=== PATIENT | male | born 1960 | race Caucasian/White ===

== ENCOUNTER → 2017-04-08 | Day surgery (SDC) | payer OTHER ==
[2017-03-31 08:20] VITALS: Ht 191.8 cm; Wt 97.7 kg
[~2017-04-08] VITALS: Ht 191.8 cm; Wt 97.7 kg
[~2017-04-08] MED LIST: ATROPINE SULFATE 0.1 MG/ML 5ML SYR IV PRN; EpHEDrine SULFATE INJ 50 MG/ML AMP IV PRN; FEXO1TAB49 PO; LIDOCAINE HCL 2% 2 ML VIAL (20MG/ML) ONE; OMEG10007 PO; PROPOFOL IV EMULSION 10 MG/ML 20 ML VIAL IV ONE
--- NOTE | 2017-04-08 14:55 | Endo History and Physical ---
History & Physical Date of Service: April 08, 2017. Chief Complaint: history of polyps Referring Physician: Dr. Orquidea Wong History of Present Illness 56 yo CM who presents for colonoscopy secondary to history of colon polyps. Past Surgical History Hx Cardiac Surgery: No Hx Internal Defibrillator: No Hx Pacemaker: No Hx Abdominal Surgery: No Hx of Implantable Prosthesis: No Hx Post-Op Nausea and Vomiting: No Hx Cancer Surgery: No Hx Thoracic Surgery: No Hx Orthopedic: No Hx Urinary Tract Surgery: No Family History None Social History Smoking Status: Current Every Day Smoker Hx Substance Use: No Hx Alcohol Use: Yes (OCCASIONALLY) Allergies Coded Allergies: No Known Allergies (Verified , 03/31/17) Uncoded Allergies: NKDA (Allergy, Mild, 10/18/07) Current Medications Reported Home Medications Medications Dose Route/Sig Max Daily Dose Days Date Category [place]-3 (Fish Oil) 1 Ea Cap 1 Cap PO QAM 03/31/17 Reported Rozina Allergy (Fexofenadine Hcl) 180 Mg Tab 1 Tab PO QAM 14 03/31/17 Reported Vital Signs Weight (Kilograms): 97.73 Height (Feet): 6 Height (Inches): 3.5 Date Time Temp Pulse Resp B/P Pulse Ox O2 Delivery O2 Flow Rate FiO2 04/08/17 14:28 36.5 69 20 131/77 96 Room Air Physical Exam General Appearance: WD/WN, no apparent distress Respiratory/Chest: Auscultation: breath sounds normal Cardiovascular: Heart Auscultation: RRR Abdomen: Bowel Sounds: normal Inspection & Palpation: soft, non-distended, no tenderness, guarding & rebound Assessment and Plan Assessment: 56 yo CM who presents for colonoscopy secondary to history of colon polyps. Plan: Proceed with colonoscopy.
--- NOTE | 2017-04-08 15:36 | GI REPORT ---
Procedure Date: 04/08/2017 2:53 PM Procedure: Colonoscopy Indications: High risk colon cancer surveillance: Personal history of colonic polyps Medicines: Monitored Anesthesia Care Complications: No immediate complications. Estimated Blood Loss: Estimated blood loss: none. Procedure: Pre-Anesthesia Assessment: - Prior to the procedure, a History and Physical was performed, and patient medications and allergies were reviewed. The patient's tolerance of previous anesthesia was also reviewed. The risks and benefits of the procedure and the sedation options and risks were discussed with the patient. All questions were answered, and informed consent was obtained. Prior Anticoagulants: The patient has taken no previous anticoagulant or antiplatelet agents. ASA Grade Assessment: II - A patient with mild systemic disease. After reviewing the risks and benefits, the patient was deemed in satisfactory condition to undergo the procedure. After I obtained informed consent, the scope was passed under direct vision. Throughout the procedure, the patient's blood pressure, pulse, and oxygen saturations were monitored continuously. The scope was introduced through the anus and advanced to the terminal ileum. The colonoscopy was performed without difficulty. The patient tolerated the procedure well. The quality of the bowel preparation was good. The terminal ileum, ileocecal valve, appendiceal orifice, and rectum were photographed. Findings: Three sessile polyps were found in the sigmoid colon and in the ascending colon. The polyps were 3 to 6 mm in size. These polyps were removed with a hot snare. Resection and retrieval were complete. Multiple small-mouthed diverticula were found in the sigmoid colon. Non-bleeding internal hemorrhoids were found during retroflexion. The hemorrhoids were small. Impression: - Three 3 to 6 mm polyps in the sigmoid colon and in the ascending colon, removed with a hot snare. Resected and retrieved. - Diverticulosis in the sigmoid colon. - Non-bleeding internal hemorrhoids. Recommendation: - Resume previous diet. - Continue present medications. - Repeat colonoscopy for surveillance based on pathology results. - Return to primary care physician as previously scheduled. Edin Ocampo DO 04/08/2017 3:34:51 PM This report has been signed electronically. Note Initiated On: 04/08/2017 2:53 PM I attest to the content of the Intraoperative Record and orders documented therein, exceptions below
--- NOTE | 2017-04-08 15:36 | Discharge Instructions ---
Endoscopy Patient Instructions Date / Procedure(s) Performed April 08, 2017. Colonoscopy Allergy Information Coded Allergies: No Known Allergies (Verified , 03/31/17) Uncoded Allergies: NKDA (Allergy, Mild, 10/18/07) Discharge Date / Findings April 08, 2017. Colon polyps Diverticulosis Internal hemorrhoids Medication Instructions OK to resume all medications today as prescribed Reported Home Medications Medications Dose Route/Sig Max Daily Dose Days Date Category [place]-3 (Fish Oil) 1 Ea Cap 1 Cap PO QAM 03/31/17 Reported Rozina Allergy (Fexofenadine Hcl) 180 Mg Tab 1 Tab PO QAM 14 03/31/17 Reported Provider Instructions Activity Restrictions - No exercising or heavy lifting for 24 hours. - Do not drink alcohol the day of the procedure. - Do not drive a car or operate machinery until the day after the procedure. - Do not make any important decisions or sign important papers in 24 hours after the procedure. Following Day: - Return to full activity which may include returning to work/school. Diet Start your diet with liquids and light foods (jello, soup, juice, toast). Then eat your usual diet if not nauseated. Treatment For Common After Affects For mild abdominal pain, bloating, or excessive gas: - Rest - Eat lightly - Lie on right side Follow-Up Information Follow-up with Dr. Orquidea Wong as scheduled Anesthesia Information What You Should Know You have had a procedure that required some medicine to reduce anxiety and discomfort. This treatment is called moderate sedation. After receiving the treatment, you may be sleepy, but you will be able to breathe on your own. The effects of the treatment may last for several hours. Follow these instructions along with Activity/Diet recommendations noted above: * Do NOT do anything where dizziness or clumsiness would be dangerous. * Rest quietly at home today, then you can be up and about tomorrow. * Have a responsible person stay with you the rest of today. * You may have had an I.V. today. If so, you may take the dressing off later today. Recommendations Call your doctor if: * Trouble breathing * Continuous vomiting for more than 24 hours * Temperature above 101 degrees * Severe abdominal pain or bloating * Pain not relieved by pain medicine ordered * There is increased drainage or redness from any incision * A large amount of rectal bleeding greater than 2-3 tablespoons. (If you had a polyp/s removed or have hemorrhoids, a small amount of blood - from the rectum is to be expected.) * You have any unanswered questions or concerns. IN THE EVENT OF A SERIOUS EMERGENCY, GO TO THE NEAREST EMERGENCY ROOM Your discharge instructions were prepared by provider Edin Ocampo. Patient Instructions Signature Page Gus Holder Patient (or Guardian) Signature/Date: I have read and understand the instructions given to me by my caregivers. Caregiver/RN/Doctor Signature/Date: The above-named patient and/or guardian has received patient instructions on this date. + Original Patient Signature Page (only) stays with chart. Please make copy for patient.
[2017-04-08 16:06] VITALS: BP 89/77; PULSE 63; O2SAT 99
--- NOTE | 2017-04-08 16:43 | Anesthesiology Progress Note ---
Anesthesia Post Op Note Date & Time April 08, 2017 at 16:43 Vital Signs Pain Intensity: 0 Vital Signs Past 12 Hours Date Time Temp Pulse Resp B/P Pulse Ox O2 Delivery O2 Flow Rate FiO2 04/08/17 16:06 63 18 89/77 99 Room Air 04/08/17 15:51 64 18 116/77 97 Room Air 04/08/17 15:36 78 18 116/81 97 Room Air 04/08/17 14:28 36.5 69 20 131/77 96 Room Air Notes Mental Status: alert / awake / arousable, participated in evaluation Pt Amnestic to Procedure: Yes Nausea / Vomiting: adequately controlled Pain: adequately controlled Airway Patency, RR, SpO2: stable & adequate BP & HR: stable & adequate Hydration State: stable & adequate Anesthetic Complications: no major complications apparent
== END | disposition home or self-care (01) ==
LOC: C.GI 14:02
PROVIDERS: ATTEND Internal Medicine
DX: Z12.11 Encounter for screening for malignant neoplasm of colon (principal); D12.2 Benign neoplasm of ascending colon; D12.5 Benign neoplasm of sigmoid colon; K57.30 Diverticulosis of large intestine without perforation or abscess without bleeding; K64.8 Other hemorrhoids; Z86.010 Personal history of colon polyps; F17.210 Nicotine dependence, cigarettes, uncomplicated

== ENCOUNTER 2023-12-01 10:41 | Observation (INO) ==
--- NOTE | 2023-12-01 11:15 | XRay Report ---
SINGLE VIEW CHEST CLINICAL HISTORY: Atypical chest pain. Syncope. FINDINGS: A PA chest radiograph is compared to study dated 10/18/2007. The cardiomediastinal silhouett e is unremarkable. The lungs and pleural spaces are clear. No pneumothorax is seen. There is a chroni c/healed left-sided rib fracture. IMPRESSION: No active disease in the chest. ACT 112: Negative or not required by law. Electronically signed by: Ze Mtz M.D. 12/01/2023 11:13 AM
[2023-12-01] MEDS ORDERED: SODIUM CHLORIDE 0.9% 1,000 ML IV ONE (11:24)
--- NOTE | 2023-12-01 11:28 | Emergency Department Note ---
Impression & Plan Sinus arrest Admit ED Provider Note HPI: History obtained from patient. The patient is a 62-year-old male who presents emergency department chief complaint of a syncopal event. Patient states that over the past several days he had 2 episodes of lightheadedness that resolved spontaneously. Patient states this morning he was drinking a cup of coffee and playing a game on his phone when he felt acutely lightheaded and then remembers waking up again in the recliner chair with the cup of coffee spilled on his lap. Patient is unsure for how long this lasted but guesses a short period of time. Patient denies any chest pain or shortness of breath, states he did have one similar episode about 30 years ago and was told it was secondary to a blood pressure issue. On arrival here to the ED the patient is hemodynamically stable, he does not have any focal deficits, patient denies any chest pain or shortness of breath but states he still feels some mild lightheadedness. ROS: - Per HPI Differential Diagnosis: Vasovagal event, seizure, arrhythmia to include SVT, atrial fibrillation with RVR, ventricular tachycardia, high degree heart block, sinus arrest, amongst other potential pathologies. *Outpatient medications and allergy history reviewed. PE: General: Alert HEENT: Normocephalic, trachea midline Eyes: Extraocular eye movement is intact, no scleral erythema Pulmonary: Clear to auscultation bilaterally, no wheezing Cardio: Regular rate and rhythm GI: Abdomen is soft to palpation : No suprapubic tenderness MSK: No evidence of trauma or malformation of the extremities, no edema Skin: No evidence of rash Neuro: Alert, no focal deficits Psychiatric: Cooperative INDEPENDENT INTERPRETATIONS: clinical research monitor: (As interpreted by myself): - An order was placed for continuous cardiac monitoring - Patient was noted to be in sinus rhythm with a rate of 72 EKG: (As interpreted by myself): Rate: 87 Rhythm: Normal sinus rhythm Intervals: Within normal limits ST changes: No ST elevation Time: 1122 Chest x-ray: (As interpreted by myself): No acute disease Interventions provided in ED: -IV fluid bolus Medical Decision Making: Shortly after the patient arrived IV was established and lab work obtained, patient was placed on playground monitor. Lab work shows no leukocytosis, hemoglobin is normal, platelet count is normal, CMP does not show any critical findings, troponin is negative x 1. TSH is within normal limits. Magnesium is within normal limits. CT imaging of the head does not show any evidence of any acute intracranial process. Chest x-ray per my interpretation does not show any evidence of acute disease. While here in the ED awaiting the results of workup, patient had a another syncopal event that correlated with a sinus arrest on the monitor lasting approximately 5 seconds. I did discuss these findings with on-call cardiology, Dr. Dockery, who recommended admission and initiation of dopamine should the patient have any recurrent or prolonged bradycardia. As the patient is currently back in sinus rhythm with only a transient event and his heart rate is within normal limits will defer any vasopressors at this time. I discussed the patient's presentation with the on-call hospitalist, Dr. Rajput, the patient was placed for admission in stable condition. Consultants/Discussions held with other healthcare providers: -Cardiology, Dr. Dockery -Hospitalist, Dr. Rajput Disposition discussion held by myself with: -Patient and at bedside Diagnosis: 1. Syncope, acute 2. Sinus arrest on playground monitor, acute, transient Disposition: Admission Taj Soto DO Emergency Medicine Past Med/Surg History Medical History Urinary hesitancy Lumbar spondylosis Lumbar radiculopathy Hip problem STEROID SHOT A FEW WEEKS AGO/LEFT Borderline high cholesterol HX Obstructive sleep apnea did not tolerate CPAP Colon polyp HX/BENIGN Surgical History History of colonoscopy History of tonsillectomy Family History Unknown Hypertension Other Family history of diabetes mellitus in father Denies family history of Ovarian cancer Prostate cancer Myocardial infarction Breast cancer Colorectal cancer Social History Smoking Status: Current every day smoker Tobacco Type: Cigarettes Age Started Using Tobacco: 36; packs per day: 1; Cigarettes Per Day: 1PPD/ADVISED NPO; Do You Dip or Chew Tobacco: No; Hx Alcohol Use: Yes Alcohol type: beer Alcohol Intake Frequency: 2-3 x/Week Preferred Language: Georgian Communication Ability: Effective Home Health Attendant Required: No Beliefs That Will Affect Care: None marital status: Single Current Living Situation: Spouse current occupational status: employed Feels Safe at Home: Yes Assistive Devices: Glasses Allergies Allergies Allergy/AdvReac Type Severity Reaction Status Date / Time No Known Allergies Allergy Unknown Verified 10/19/22 11:04 Home Meds Home Medications Medication Instructions Recorded Confirmed loratadine 10 mg tablet (Claritin) 10 mg PO DAILY PRN allergies 12/01/23 12/01/23 Results & Data (ED) Vital Signs Vital Signs - 24 hr 12/01/23 10:51 12/01/23 11:34 12/01/23 11:36 Temperature 36.5 C Temperature Source Temporal Artery Scan Pulse Rate 94 H 77 Pulse Rate [Apical] 77 Pulse Rate from SpO2 Sensor Pulse Rhythm Respiratory Rate 16 20 17 Respiratory Effort / Characteristics Non-Labored Spontaneous Respiratory Depth Normal Blood Pressure 120/77 138/89 Blood Pressure [Left Arm] 144/92 H Blood Pressure Mean 91 105 Blood Pressure Mean [Left Arm] 109 Pulse Oximetry 96 96 95 Oxygen Delivery Method Room Air Room Air Sepsis Recent Fever Within 48 Hours No Sepsis New/Unexplained Change in Mental Status No Sepsis Action Taken by Nursing No Action Required 12/01/23 11:38 12/01/23 11:52 12/01/23 12:00 Temperature Temperature Source Pulse Rate 85 71 69 Pulse Rate [Apical] Pulse Rate from SpO2 Sensor 67 Pulse Rhythm Regular Respiratory Rate 21 14 Respiratory Effort / Characteristics Respiratory Depth Blood Pressure 131/92 118/80 Blood Pressure [Left Arm] Blood Pressure Mean 103 92 Blood Pressure Mean [Left Arm] Pulse Oximetry 95 96 94 Oxygen Delivery Method Room Air Sepsis Recent Fever Within 48 Hours Sepsis New/Unexplained Change in Mental Status Sepsis Action Taken by Nursing 12/01/23 12:30 12/01/23 12:39 12/01/23 13:00 Temperature Temperature Source Pulse Rate 75 68 71 Pulse Rate [Apical] Pulse Rate from SpO2 Sensor 72 72 Pulse Rhythm Respiratory Rate 17 18 Respiratory Effort / Characteristics Respiratory Depth Blood Pressure 125/78 94/58 L Blood Pressure [Left Arm] Blood Pressure Mean 93 70 Blood Pressure Mean [Left Arm] Pulse Oximetry 97 97 Oxygen Delivery Method Sepsis Recent Fever Within 48 Hours Sepsis New/Unexplained Change in Mental Status Sepsis Action Taken by Nursing 12/01/23 13:10 12/01/23 13:20 Temperature Temperature Source Pulse Rate 63 68 Pulse Rate [Apical] Pulse Rate from SpO2 Sensor 63 67 Pulse Rhythm Respiratory Rate 15 18 Respiratory Effort / Characteristics Respiratory Depth Blood Pressure Blood Pressure [Left Arm] Blood Pressure Mean Blood Pressure Mean [Left Arm] Pulse Oximetry 95 97 Oxygen Delivery Method Sepsis Recent Fever Within 48 Hours Sepsis New/Unexplained Change in Mental Status Sepsis Action Taken by Nursing Laboratory Data 12/01/23 11:23 12/01/23 11:23 Lab Results 12/01/23 Range/Units 11:23 WBC 9.87 (4.8-10.8) K/ul RBC 5.75 (4.70-6.10) M/uL Hgb 16.8 (14.0-18.0) g/dl Hct 49.8 (42.0-52.0) % MCV 86.6 (80.0-100.0) fL MCH 29.2 (25.0-34.0) pg MCHC 33.7 (32.0-36.0) g/dL RDW Std Deviation 42.5 (36.4-46.3) fL RDW Coeff of Jessie 13.4 (11.5-14.5) % Plt Count 204 (130-400) K/uL MPV 12.2 (9.4-12.4) fL Immature Gran % (Auto) 0.9 % Neut % (Auto) 63.9 % Lymph % (Auto) 27.4 % Preston % (Auto) 6.0 % Eos % (Auto) 1.2 % Baso % (Auto) 0.6 % Neut # (Auto) 6.31 (1.40-6.50) K/uL Lymph # (Auto) 2.70 (1.20-3.40) K/uL Preston # (Auto) 0.59 (0.11-0.59) K/uL Eos # (Auto) 0.12 (0.00-0.50) K/uL Baso # (Auto) 0.06 (0.00-0.20) K/uL Immature Gran # (Auto) 0.09 (0.01-0.20) K/uL Polychromasia 1+ PT 10.9 (9.0-12.0) Seconds INR 1.0 (0.9-1.1) APTT 24 (21-31) Seconds PTT Ratio 0.9 Sodium 138 (136-145) mmol/L Potassium 4.3 (3.5-5.1) mmol/L Chloride 104 (98-107) mmol/L Carbon Dioxide 27 (21-32) mmol/L Anion Gap 7 (3-11) BUN 18 (6-23) mg/dl Creatinine 1.01 (0.6-1.4) mg/dl Est Cr Clr Drug Dosing Not Reportable Est GFR ( Amer) 92.6 ml/min Est GFR (Non-Af Amer) 79.9 ml/min BUN/Creatinine Ratio 17.8 (10-20) Glucose 111 H (70-99(Fasting)) mg/dl Calcium 9.1 (8.6-10.3) mg/dl Magnesium 2.3 (1.7-2.4) mg/dl Total Bilirubin 0.4 (0.2-1.0) mg/dl AST 18 (13-39) U/L ALT 17 (7-52) U/L Alkaline Phosphatase 79 (34-104) U/L Troponin I High Sens 3.0 (0-20) pg/ml Total Protein 7.5 (6.0-8.3) gm/dl Albumin 4.5 (3.4-5.0) gm/dl Globulin 3.0 (2.5-4.0) gm/dl Albumin/Globulin Ratio 1.5 (0.9-2) TSH 1.695 (0.300-4.500) uIu/ml Administered Medications Discontinued Medications Sodium Chloride (Nss) 1,000 mls @ 999 mls/hr IV .Q1H1M ONE Stop: 12/01/23 12:24 Last Infusion: 12/01/23 12:36 Dose: Infused Documented By: Admin: 12/01/23 11:35 Dose: 999 mls/hr Documented By: ML Imaging Data Radiologist's Impression: Chest X-Ray 12/01/23 10:55 SINGLE VIEW CHEST CLINICAL HISTORY: Atypical chest pain. Syncope. FINDINGS: A PA chest radiograph is compared to study dated 10/18/2007. The cardiomediastinal silhouette is unremarkable. The lungs and pleural spaces are clear. No pneumothorax is seen. There is a chronic/healed left-sided rib fracture. IMPRESSION: No active disease in the chest. ACT 112: Negative or not required by law. Electronically signed by: Ze Mtz M.D. 12/01/2023 11:[address] 01/17/24 11:25 CT head/brain wo con CLINICAL HISTORY: 62 years-old Male with syncope. Acute syncope TECHNIQUE: Multiple axial CT images of the head were obtained without contrast. A dose lowering technique was utilized adhering to the principles of ALARA. CT DOSE: 703.85 mGy.cm COMPARISON: None. FINDINGS: No acute intracranial hemorrhage, midline shift, intracranial mass, hydrocephalus, territorial ischemia or abnormal extra-axial collection. Mild white matter hypodensities likely represent chronic microvascular ischemic disease. Cerebrovascular calcifications. The calvarium is intact. The paranasal sinuses, mastoid air cells, and middle ear cavities are clear. IMPRESSION: 1. No acute intracranial abnormality. 2. No acute calvarial fracture. ACT 112: Negative or not required by law. The above report was generated using voice recognition software. It may contain grammatical, syntax or spelling errors. Electronically signed by: Willis Rosales M.D. 12/01/2023 12:46 PM Discharge Plan Visit Data Chief Complaint: Syncope Stated Complaint: lightheaded, syncope ED Provider: Taj Soto Discharge Problem: Sinus arrest Forms Stand Alone Forms: [facility] Prescriptions Prescriptions: No Action loratadine [Claritin] 10 mg Tablet 10 mg PO DAILY PRN (Reason: allergies) Referrals Referrals: Orquidea Wong MD [Primary Care Provider] -
[2023-12-01 12:06] LABS: Alanine Aminotransferase 17 U/L (7-52); Albumin Globulin Ratio 1.5 (0.9-2); Albumin Level 4.5 gm/dl (3.4-5.0); Alkaline Phosphatase 79 U/L (34-104); Anion Gap 7 (3-11); Aspartate Aminotransferase 18 U/L (13-39); BUN Creatinine Ratio 17.8 (10-20); Bilirubin,Total 0.4 mg/dl (0.2-1.0); Blood Urea Nitrogen 18 mg/dl (6-23); Calcium 9.1 mg/dl (8.6-10.3); Carbon Dioxide 27 mmol/L (21-32); Chloride 104 mmol/L (98-107); Est GFR (African American) 92.6 ml/min; Est GFR (Non-African American) 79.9 ml/min; Glucose 111 mg/dl (70-99(Fasting)); Potassium 4.3 mmol/L (3.5-5.1); Sodium 138 mmol/L (136-145); Total Protein 7.5 gm/dl (6.0-8.3)
[2023-12-01 12:18] LABS: Basophils # (auto) 0.06 K/uL (0.00-0.20); Basophils % (auto) 0.6 %; Eosinophils # (auto) 0.12 K/uL (0.00-0.50); Eosinophils % (auto) 1.2 %; Hematocrit (blood only) 49.8 % (42.0-52.0); Hemoglobin 16.8 g/dl (14.0-18.0); Immature Granulocytes # (auto) 0.09 K/uL (0.01-0.20); Immature Granulocytes % (auto) 0.9 %; Lymphocytes % (auto) 27.4 %; Magnesium 2.3 mg/dl (1.7-2.4); Mean Corpuscular Hemoglobin 29.2 pg (25.0-34.0); Mean Corpuscular Hgb Conc 33.7 g/dL (32.0-36.0); Mean Corpuscular Volume 86.6 fL (80.0-100.0); Mean Platelet Volume 12.2 fL (9.4-12.4); Monocytes # (auto) 0.59 K/uL (0.11-0.59); Neutrophils # (auto) 6.31 K/uL (1.40-6.50); Neutrophils % (auto) 63.9 %; Partial Thromboplastin Ratio 0.9; Partial Thromboplastin Time 24 Seconds (21-31); Platelet Count 204 K/uL (130-400); Polychromasia 1+; Prothrombin Time 10.9 Seconds (9.0-12.0); RDW Coefficient of Variation 13.4 % (11.5-14.5); RDW Standard Deviation 42.5 fL (36.4-46.3); Red Blood Count 5.75 M/uL (4.70-6.10); White Blood Count 9.87 K/ul (4.8-10.8)
[2023-12-01 12:33] LABS: Thyroid Stimulating Hormone 1.695 uIu/ml (0.300-4.500)
--- NOTE | 2023-12-01 12:47 | CT Scan Report ---
CT head/brain wo con CLINICAL HISTORY: 62 years-old Male with syncope. Acute syncope TECHNIQUE: Multiple axial CT images of the head were obtained without contrast. A dose lowering tech nique was utilized adhering to the principles of ALARA. CT DOSE: 703.85 mGy.cm COMPARISON: None. FINDINGS: No acute intracranial hemorrhage, midline shift, intracranial mass, hydrocephalus, territorial ischem ia or abnormal extra-axial collection. Mild white matter hypodensities likely represent chronic micro vascular ischemic disease. Cerebrovascular calcifications. The calvarium is intact. The paranasal sinuses, mastoid air cells, and middle ear cavities are clear . IMPRESSION: 1. No acute intracranial abnormality. 2. No acute calvarial fracture. ACT 112: Negative or not required by law. The above report was generated using voice recognition software. It may contain grammatical, syntax o r spelling errors. Electronically signed by: Willis Rosales M.D. 12/01/2023 12:46 PM
--- NOTE | 2023-12-01 13:07 | History & Physical Report ---
Date of Service December 01, 2023 Assessment & Plan (1) Sinus pause: Plan: Syncope with sinus pause 5.2s Patient with an episode of syncope while sitting in his recliner chair. 2 prior episodes of sudden lightheadedness and presyncope which subsequently improved. Had an episode while sitting drinking coffee with some lightheadedness and then woke up back in his recliner unaware how much time it passed. Last echo 01/2022 EF 55-60%, no valvular pathology, no regional wall motion abnormalities, stable from prior. - Holter monitor 2021 performed for palpitations with IVCD without significant pauses or AV block, normal KY and QT at varying rates, rare isolated APD's, rare isolated VPD's. No significant arrhythmia noted, dizziness and symptoms or flagged as occurring during normal sinus rhythm and during sinus tachycardia Admitting EKG iRBBB, nsr, KY 162, QTc 466. 5.2 second pause without KY abnormality prior/after noted while on telemetry. - No anginal sx. hs-trop normal. - Echo pending Patient is not on any zoe blocking agents - Lyme testing pending -CT-H naf - Pacer pads to bedside, if recurrent sx --> add dopamine gtt and xfer to ICU. Asymptomatic at bedside, admitted to PCU. - Cardiology consulted. NPO at 0000, anticipate pacer placement 12/02. (2) Lumbar radiculopathy: Plan: Lumbar radiculopathy S/p L2-L3 laminectomy and microdiscectomy due to recurrent disc herniation and stenosis with radiculopathy Follows with [facility] 90% improvement of symptoms postoperatively, feels he is doing well since. (3) Obstructive sleep apnea: Plan: - did have outpt sleep study. Pt did not tolerate CPAP as outpatient, but has not tried a machine in many years - CPAP qHS PRN. Followup as outpt to look at newer resources/nasal pillow/etc for improved tolerance (4) Tobacco abuse: Plan: - Cessation recommended - nicotine patch PRN Plan DVT PPx: SCDs Diet: Clears until midnight then NPO for pacer Dispo: PCU. If frequent sx events requiring dopamine or pacing --> xfer ICU at that time CODE: Full History of Present Illness Primary Care Provider: Orquidea Wong MD Jordan is a 62-year-old male with a past medical history of lumbar radiculopathy s/p L2-L3 laminectomy/microdiscectomy, hyperlipidemia, distant history of presyncope suspected to be related to blood pressure, hemorrhoids, and no prior cardiopulmonary disease who presents for an episode of syncope which occurred while sitting in his chair and which was preceded by 2 recent upper episodes of sudden lightheadedness and presyncope. He has no leukocytosis, BSG was 111, he is not volume contracted, with normal renal function, and a normal potassium on admission. High-sensitivity troponin is normal, TSH is normal, and EKG does not show any acute ischemic change but rhythm reviewed does show a 5.2-second sinus pause. Everardo reports he has been feeling lightheaded and passed out twice today Prior to this has had a 'very kun sensation' where he was very suddenly lightheaded and presyncopal this passed Wednesday. This was the first time he felt dizzi since 30 years ago when he had a similar episode but was told it was from low blood pressure at that time. Intermittent episodes since Wednesday with some but less presycnope, ~5 episodes total. Today was the first time he lost conciousnes/syncopized. Was drinking coffee playing games on his phone, felt the lightheadedness coming just for a few seconds then woke up with coffee all over him. Not more than 10 seconds of warning. 2nd episode happened while in the ER, again had seconds notice. Was only out for ~10 seconds at the most per his who was with. No weakness, no confusion after. No shaking. no bowel/bladder incontinence. Pt does endorse a history of sleep apnea, was tested for it 20 years ago but does not use a CPAP No recent fevers, chills. Has had some sweats around his episodes when waking up. Denies chest pain, denies chest pressure. no shortness of breath. Is able to walk, go up stairs, and shovel snow yesterday with no pain, no dyspnea, no chest pressure although notes he doesn't do 'a lot since back surgery last year.' No history of lung or kidney disease No leg swelling. No orthopnea No rashes. No tick bites. No leg swelling. Hx of a holter monitor FHx: Father with bipass in 50-60s, also had 'mild diabetes not on insulin.' Medical History: Reviewed Medications: Reviewed. No prescription medications. Takes allergy pills PRN took 1x generic OTC med but doesn't remember the name Surgical History: Reviewed Family history: Reviewed Allergies: Reviewed. NKDA Social History: Social EtOH use ~2-3 days per week, 2-3 in a sitting generally. No history shakes or withdrawal. Very rare reactional marijuana. Cigarette use 1ppd x20 years. Code Status: Full Code Allergies Allergy/AdvReac Type Severity Reaction Status Date / Time No Known Allergies Allergy Unknown Verified 10/19/22 11:04 Home Medications Medication Instructions Recorded Confirmed Type loratadine 10 mg tablet (Claritin) 10 mg PO DAILY PRN allergies 12/01/23 12/01/23 History Past Med/Surg History Medical History Urinary hesitancy Lumbar spondylosis Lumbar radiculopathy Hip problem STEROID SHOT A FEW WEEKS AGO/LEFT Borderline high cholesterol HX Obstructive sleep apnea did not tolerate CPAP Colon polyp HX/BENIGN Surgical History History of colonoscopy History of tonsillectomy Family History Unknown Hypertension Other Family history of diabetes mellitus in father Denies family history of Ovarian cancer Prostate cancer Myocardial infarction Breast cancer Colorectal cancer Social History Smoking Status: Current every day smoker Tobacco Type: Cigarettes Age Started Using Tobacco: 36; packs per day: 1; Cigarettes Per Day: 20; Second Hand Exposure: No; Do You Dip or Chew Tobacco: No; Tobacco Cessation Education Requested by Patient: No Hx Alcohol Use: Yes Alcohol type: beer Alcohol Intake Frequency: 2-3 x/Week Hx Substance Use: Yes Last Used Substance Other:: high school Preferred Language: Tongan Communication Ability: Effective Used Car Renovator Required: No Beliefs That Will Affect Care: None marital status: Single Current Living Situation: Other Current Living Situation Comment: girlfriend current occupational status: employed Other Information That Helps Us Care for You: No Feels Safe at Home: Yes Safety Concerns: Feels Safe At This Time Assistive Devices: None Review of Systems Review of Systems: All systems reviewed & are unremarkable except as noted in HPI & below Physical Exam Physical Exam: General: A&Ox3. NAD. Cooperative. HEENT: Atraumatic, normocephalic. PERLAA. EoM intact. Pulm: CTAB A&P. -wheezes, -rales, -rhonchi. Symmetrical chest rise. No increased work of breathing. No respiratory distress. Cardiac: RRR, -mrg. Radial pulses intact and symmetrical. No JVD Abdominal: Nontender, nondistended, soft. BS present. Ext: Warm, dry. No edema. Results & Data Results & Data Vital Signs (Past 12 Hours) Vital Signs Temp Pulse Pulse Resp BP BP Pulse Ox 12/01/23 12:39 68 12/01/23 12:30 75 17 125/78 97 12/01/23 12:00 69 14 118/80 94 12/01/23 11:52 71 96 12/01/23 11:38 85 21 131/92 95 12/01/23 11:36 77 17 138/89 95 12/01/23 11:34 77 20 144/92 H 96 12/01/23 10:51 36.5 C 94 H 16 120/77 96 O2 Del Method 12/01/23 12:39 12/01/23 12:30 12/01/23 12:00 12/01/23 11:52 Room Air 12/01/23 11:38 12/01/23 11:36 12/01/23 11:34 Room Air 12/01/23 10:51 Room Air PG Care Time/CCT Total # of Minutes Spent Total Time Spent with Patient: Total time spent is greater than 50% in coordination of care (as documented) at patient's floor/unit and/or counseling patient: Coding Level of Care Code 30593 INT INP/OBS CARE 3/75MIN Diagnoses Sinus pause I45.5 Lumbar radiculopathy M54.16 Obstructive sleep apnea G47.33 Tobacco abuse Z72.0
--- NOTE | 2023-12-01 13:35 | Cardiology Consultation ---
Date of Consultation December 01, 2023 Assessment & Plan (1) Sinus arrest: 2. Obstructive sleep apnea 3. RBBB 4. Lumbar radiculopathy postlaminectomy 5. Tobacco abuse Witnessed syncope in the setting of sinus node dysfunction on telemetry. No signs/symptoms of coronary ischemia. No offending medications. Thyroid, electrolytes unremarkable. Lyme pending. Currently back in sinus rhythm in 60s and 70s and hemodynamically stable. With no clear precipitant patient will likely need permanent pacemaker. Will discuss with EP but tentatively plan on procedure tomorrow with Dr. Pringle. In the interim: Continue monitoring on telemetry Trend troponin, Lyme serologies Repeat echo Pacing pads in place. If recurrent symptomatic pauses start dopamine infusion. No need for temporary pacemaker at this time. Please keep n.p.o. past midnight Patient seen with Dr. Rajput. History of Present Illness History of Present Illness Mr. Holder is a very pleasant 62-year-old male CORY, lumbar radiculopathy post laminectomy 07/2023 seen today in the ED due to syncope with sinus pauses. Patient reports new presyncopal spells over the last 3 to 4 days, approximately 5 episodes. Today had first episode where he passed out. Witnessed by , loss of consciousness for approximately 10 seconds. Syncopal spell preceded by brief lightheadedness/feeling he was "watching himself." No associated chest pain or palpitations. No preceding nausea, diaphoresis. In the ED had a second episode of syncope while on monitor, correlated with sinus pauses, longest >5 seconds. Since has been in sinus rhythm, primarily in the 70s, hemodynamically stable with no recurrent presyncopal symptoms. ECG today shows sinus rhythm, RBBB, left axis deviation, no ST abnormalities. HS TropI normal. Head CT negative. Activity at baseline limited by back issues but recently no new exertional shortness of breath, chest pain or change in exercise tolerance. No heart failure symptoms. No tick bites, rashes, fevers or chills. No new medications. Reports 1 single episode maybe 30 years ago for which told due to low blood pressures. Also previously evaluated for palpitations with primary care in 2021. Holter monitor with rare PACs/PVCs. Echo with preserved LV function.. Recent cardiac testing: Echo 01/2022: EF 55%,, no valve pathology Holter 01/2022: Rare PACs, PVCs.. No arrhythmia correlate with symptoms Allergies Allergy/AdvReac Type Severity Reaction Status Date / Time No Known Allergies Allergy Unknown Verified 10/19/22 11:04 Home Medications Medication Instructions Recorded Confirmed Type loratadine 10 mg tablet (Claritin) 10 mg PO DAILY PRN allergies 12/01/23 12/01/23 History Patient History Medical History Urinary hesitancy Lumbar spondylosis Lumbar radiculopathy Hip problem STEROID SHOT A FEW WEEKS AGO/LEFT Borderline high cholesterol HX Obstructive sleep apnea did not tolerate CPAP Colon polyp HX/BENIGN Surgical History History of colonoscopy History of tonsillectomy Family History Unknown Hypertension Other Family history of diabetes mellitus in father Denies family history of Ovarian cancer Prostate cancer Myocardial infarction Breast cancer Colorectal cancer Social History Smoking Status: Current every day smoker Tobacco Type: Cigarettes Age Started Using Tobacco: 36; packs per day: 1; Cigarettes Per Day: 20; Second Hand Exposure: No; Do You Dip or Chew Tobacco: No; Tobacco Cessation Education Requested by Patient: No Hx Alcohol Use: Yes Alcohol type: beer Alcohol Intake Frequency: 2-3 x/Week Hx Substance Use: Yes Last Used Substance Other:: high school Preferred Language: Faroese Communication Ability: Effective Local Announcer Required: No Beliefs That Will Affect Care: None marital status: Single Current Living Situation: Other Current Living Situation Comment: girlfriend current occupational status: employed Other Information That Helps Us Care for You: No Feels Safe at Home: Yes Safety Concerns: Feels Safe At This Time Assistive Devices: None Review of Systems Review of Systems: All systems reviewed & are unremarkable except as noted in HPI & below Physical Exam Physical Exam: General: Comfortable HEENT: Sclerae anicteric Lungs: Clear to auscultation bilaterally, no crackles or wheezes Cardiac: Regular rate and rhythm, no murmurs. Vascular: 2+ radial No bruits Abdomen: Soft, nontender Extremities: Well perfused, no peripheral edema Neuro: Nonfocal Psych: Alert orient x3, normal affect and mood Results & Data Vital Signs (Past 12 Hours) Vital Signs Temp Pulse Pulse Resp BP BP Pulse Ox 12/01/23 13:20 68 18 97 12/01/23 13:10 63 15 95 12/01/23 13:00 71 18 94/58 L 97 12/01/23 12:39 68 12/01/23 12:30 75 17 125/78 97 12/01/23 12:00 69 14 118/80 94 12/01/23 11:52 71 96 12/01/23 11:38 85 21 131/92 95 12/01/23 11:36 77 17 138/89 95 12/01/23 11:34 77 20 144/92 H 96 12/01/23 10:51 97.7 F 94 H 16 120/77 96 O2 Del Method 12/01/23 13:20 12/01/23 13:10 12/01/23 13:00 12/01/23 12:39 12/01/23 12:30 12/01/23 12:00 12/01/23 11:52 Room Air 12/01/23 11:38 12/01/23 11:36 12/01/23 11:34 Room Air 12/01/23 10:51 Room Air PG Care Time/CCT Total # of Minutes Spent Total Time Spent with Patient: Total time spent is greater than 50% in coordination of care (as documented) at patient's floor/unit and/or counseling patient: Coding Level of Care Code 48245 OFFICE CONSULT LVL M Diagnoses Sinus arrest I45.5
[2023-12-01] MEDS ORDERED: ACETAMINOPHEN 325 MG TAB PO PRN (14:23)
[2023-12-01] MEDS ORDERED: ATROPINE SULFATE 0.1 MG/ML 5ML SYR IV PRN (14:23)
--- OUTSIDE RECORDS SUMMARY | 2023-12-01 14:43 | External Medical Summary | Continuity of Care Document ---
Author Name Unknown [facility] [address] [place] [phone] Care Team Providers Care Inspector Balance Truing Name Role Phone Orquidea Wong Primary Care Physician [phone] [id number] Date[facility]): [facility]09[facility]23 - [facility]09/[facility] [address] [facility] Neurosurgery [address], [facility], [address] [place] [address] [phone] Encounter Diagnosis Lumbar disc herniation(Discharge Diagnosis) - 06/09/23 Discharge Disposition: Home or Self Care Attending Physician: MD Grossman John P Referring Physician: MD Wong Cynthia D Allergies, Adverse Reactions, Alerts No Known Medication Allergies Medications Ativan 0.5 mg oral tablet Start: 06/01/23 12:18:00 EDT, See Instructions, Disp# 2 tab, Refills: 0, Take one tab 1 hour prior to MRI om 06/08. Take second tab 15 min prior if needed. You will need transportation to and from your MRI, Pharmacy: [id number] Start Date: 06/01/23 Status: Ordered cyclobenzaprine 5 mg oral tablet take 1 tablet by mouth three times a day if needed for muscle spasm Start Date: 06/09/23 Status: Ordered gabapentin 600 mg oral tablet TAKE 1 TABLET BY MOUTH 3 TIMES A DAY Start Date: 06/09/23 Status: Ordered Tylenol Start: 01/07/23 14:00:00 EST, 500 mg =, PO, PRN: as needed for pain Start Date: 01/07/23 Status: Ordered Problem List Condition Confirmation Course Effective Dates Status Health [facility] Informant Left knee DJD Confirmed Active Pre-op exam Confirmed Active Diagnosis Diagnosis Type Effective Dates Health Status Clinical Service Informant Lumbar disc herniation Discharge Diagnosis 06/09/23 Procedures Procedure Date Related Diagnosis Body Site Status Tonsillectomy 1994 Completed Tonsillectomy Completed Results Radiology Reports * Exam Date Time Procedure Performing Provider Status 06/09/23 1:45 PM XR Spine Lumbosacral 2 or 3 Views Lele Ambrosio; Final Notes: (XR Spine Lumbosacral 2 or 3 Views) Reason For Exam: PAin XR Spine Lumbosacral 2 or 3 Views EXAMINATION: XR Spine Lumbosacral 2 or 3 Views CLINICAL HISTORY: M51.26: Other intervertebral disc displacement, lumbar reg; M51.26: Other intervertebral disc displacement, lumbar reg; Upright lat flex-ex PAin COMPARISON: None FINDINGS: 3 Lateral views of the lumbar spine are obtained in neutral position, flexion, and extension. Thereis anatomic alignment of the lumbar spine with straightening of the normal lumbar lordosis. There is no evidence of segmental hypermobility during flexion extension maneuvers. Mild disc space degeneration is present at L1-2, L2-3, and L3-4 with small endplate osteophytes without disc space narrowing. There is moderate posterior facet osteoarthritis throughout the lumbar spine. There is no compression fracture or focal bone abnormality. There are scattered vascular calcifications of the abdominal aorta without evidence of aneurysmal dilatation. IMPRESSION: Nonspecific straightening of the normal lumbar lordosis suggestive of paravertebral muscle spasm No evidence of segmental hypermobility during flexion extension maneuvers Workstation ID: [id number] Final Dictated by:MD Soria Timothy J Dictated DT/TM:06/09/2023 1:52 Signed by:MD Soria Timothy J Signed (Electronic Signature):06/09/2023 1:51 p Social History Social History Type Response Smoking Status Current every day he sandy smoker Sex Male XR Spine Lumbar and Sacrum GE 2 Views * Contributor_system, [id number]: PERFORM Contributor_system, [id number]: PERFORM, VERIFY MD Soria Timothy J: VERIFY Event Display: Report Authored Date: [id number] EXAMINATION: XR Spine Lumbosacral 2 or 3 Views CLINICAL HISTORY: M51.26: Other intervertebral disc displacement, lumbar reg; M51.26: Other intervertebral disc displacement, lumbar reg; Upright lat flex-ex PAin COMPARISON: None FINDINGS: 3 Lateral views of the lumbar spine are obtained in neutral position, flexion, and extension. Thereis anatomic alignment of the lumbar spine with straightening of the normal lumbar lordosis. There is no evidence of segmental hypermobility during flexion extension maneuvers. Mild disc space degeneration is present at L1-2, L2-3, and L3-4 with small endplate osteophytes without disc space narrowing. There is moderate posterior facet osteoarthritis throughout the lumbar spine. There is no compression fracture or focal bone abnormality. There are scattered vascular calcifications of the abdominal aorta without evidence of aneurysmal dilatation. IMPRESSION: Nonspecific straightening of the normal lumbar lordosis suggestive of paravertebral muscle spasm No evidence of segmental hypermobility during flexion extension maneuvers Workstation ID: [id number] Final Dictated by:MD Soria Timothy J Dictated DT/TM:06/09/2023 1:52 Signed by:MD Soria Timothy J Signed (Electronic Signature):06/09/2023 1:51 p Patient Care team information Care Team Personnel Name: MD Wong Cynthia D Position: Referring Member Role: Primary Care Provider Address: Address: [address] [place] [address] [place] [address] Name: Haroon Bell Erika Position: Pharmacist Member Role: Pharmacy - Lifetime Care Team Related Persons Name: GELY SALDAÑA Address: [place] Address: [address] [facility] [place] [phone]
--- OUTSIDE RECORDS SUMMARY | 2023-12-01 14:43 | External Medical Summary | Continuity of Care Document ---
Author Name Unknown Organization [place] [address] [address]NOLDO PEREZ [address] Address [address] [facility] [place] [id number] Care Team Providers Care Launch Operator Name Role Phone Orquidea Wong Primary Care Physician [phone] Encounter [facility] [id number] Date(s): 06/08/23 - 06/08/23 [place] [address] ARNOLDO SHETTY [address] [facility] [address] [facility], [address] [place] [address] Discharge Disposition: Home or Self Care Attending Physician: DEV Hernández Sheena M Referring Physician: DEV Hernández Sheena M Allergies, Adverse Reactions, Alerts No Known Medication Allergies Medications Ativan 0.5 mg oral tablet Start: 06/01/23 12:18:00 EDT, See Instructions, Disp# 2 tab, Refills: 0, Take one tab 1 hour prior to MRI om 06/08. Take second tab 15 min prior if needed. You will need transportation to and from your MRI, [id number] Start Date: 06/01/23 Status: Ordered cyclobenzaprine 5 [...] DJD Confirmed Active Pre-op exam Confirmed Active Procedures Procedure Date Related Diagnosis Body Site Status Tonsillectomy 1994 Completed Tonsillectomy Completed Results Radiology Reports * Exam Date Time Procedure Performing Provider Status 06/08/23 9:13 PM MRI Spine Lumbar w/o Contrast Lila Flores; Final Notes: (MRI Spine Lumbar w/o Contrast) Reason For Exam: low back pain b/l leg radiculopathy MRI Spine Lumbar w/o Contrast EXAMINATION: MR OF THE LUMBAR SPINE WITHOUT CONTRAST CLINICAL HISTORY: M54.16: Radiculopathy, lumbar region; low back pain b/l leg radiculopathy COMPARISON: MRI scan dated . TECHNIQUE: Multiplanar, multisequence MR of the lumbar spine was performed without intravenous contrast. FINDINGS: Lumbar spine shows loss of normal lordosis. There is mild leftward curvature of lumbar spine. Postsurgical changes of L2-L4 left hemilaminectomy and medial facetectomy. Spine shows normal marrow signal intensity. Conus medullaris appears normal in morphology and signal intensity. There is redundancy and significant mass effect on intraspinal nerve roots at L2-L3 level. Axial analysis: L1-L2: There is evidence of facet degeneration and global disc bulge at this level causing mild central canal stenosis. L2-L3: Large posterior central and left paracentral extruded disc is seen at this level causing severe mass effect on thecal sac, left traversing and exiting nerve root. Also seen is an once degenerative changes in the facet joints and mild hypertrophy of the ligamentum flavum. There is moderate left neural foramina stenosis. Right neural foramina and exiting nodes are unremarkable. L3-L4 circumferential disc bulge along with bilateral ligamentum flavum hypertrophy and facet degeneration seen causing mild neural foramina stenosis. L4-L5: Global disc bulge and posterior central and left paracentral disc protrusion is seen causingindentation over the left traversing nerve root. Neural foramina are unremarkable. L5-S1: Central canal and neural foramina are unremarkable. IMPRESSION: 1. Large posterior central and left paracentral extruded disc at L2-L3 causing severe mass effect on thecal sac, left traversing and exiting nerve root. 2. Global disc bulge and posterior central and left paracentral disc protrusion at L4-L5 causing indentation over the left traversing nerve root. 3. Degenerative in the rest of the lumbar spine as described above. [place] Act 112: This study does not meet the requirements of [place] Act 112. Workstation ID: [id number] Final Dictated by:MD Bustillos Sangam G Dictated DT/TM:06/09/2023 9:41 Signed by:MD Bustillos Sangam G Signed (Electronic Signature):06/09/2023 9:40 a Social History Social History Type Response Smoking Status Current every day he sandy smoker Sex Male MR Lumbar spine WO contrast * MD Bustillos Sangam G: VERIFY, VERIFY MD Bustillos Sangam G: VERIFY Contributor_system, [id number]: PERFORM Event Display: Report Authored Date: [id number] EXAMINATION: MR OF THE LUMBAR SPINE WITHOUT CONTRAST CLINICAL HISTORY: M54.16: Radiculopathy, lumbar region; low back pain b/l leg radiculopathy COMPARISON: MRI scan dated . TECHNIQUE: Multiplanar, multisequence MR of the lumbar spine was performed without intravenous contrast. FINDINGS: Lumbar spine shows loss of normal lordosis. There is mild leftward curvature of lumbar spine. Postsurgical changes of L2-L4 left hemilaminectomy and medial facetectomy. Spine shows normal marrow signal intensity. Conus medullaris appears normal in morphology and signal intensity. There is redundancy and significant mass effect on intraspinal nerve roots at L2-L3 level. Axial analysis: L1-L2: There is evidence of facet degeneration and global disc bulge at this level causing mild central canal stenosis. L2-L3: Large posterior central and left paracentral extruded disc is seen at this level causing severe mass effect on thecal sac, left traversing and exiting nerve root. Also seen is an once degenerative changes in the facet joints and mild hypertrophy of the ligamentum flavum. There is moderate left neural foramina stenosis. Right neural foramina and exiting nodes are unremarkable. L3-L4 circumferential disc bulge along with bilateral ligamentum flavum hypertrophy and facet degeneration seen causing mild neural foramina stenosis. L4-L5: Global disc bulge and posterior central and left paracentral disc protrusion is seen causingindentation over the left traversing nerve root. Neural foramina are unremarkable. L5-S1: Central canal and neural foramina are unremarkable. IMPRESSION: 1. Large posterior central and left paracentral extruded disc at L2-L3 causing severe mass effect on thecal sac, left traversing and exiting nerve root. 2. Global disc bulge and posterior central and left paracentral disc protrusion at L4-L5 causing indentation over the left traversing nerve root. 3. Degenerative in the rest of the lumbar spine as described above. [place] Act 112: This study does not meet the requirements of [place] Act 112. Workstation ID: [id number] Final Dictated by:MD Bustillos Sangam G Dictated DT/TM:06/09/2023 9:41 Signed by:MD Bustillos Sangam G Signed (Electronic Signature):06/09/2023 9:40 a Patient Care team information Care Team Personnel Name: MD Wong Cynthia D Position: Referring Member Role: Primary Care Provider Address: Address: [address] [place] [address] [place] [address] Name: Haroon Bell Erika Position: Pharmacist Member Role: Pharmacy - Lifetime Care Team Related Persons Name: GELY SALDAÑA Address: [place] Address: home [address] [place] [id number]
--- OUTSIDE RECORDS SUMMARY | 2023-12-01 14:43 | External Medical Summary | Continuity of Care Document ---
Author Name Unknown [facility] [address] [place] [address] [place] [id number] Care Team Providers Care Supportive Employment Case Manager Name Role Phone Orquidea Wong Primary Care Physician [phone] [id number] Date(s): 06/09/23 - [facility]/09/[facility] Neurosurgery [address], [facility] [address], [address] [place] [phone] Encounter Diagnosis Lumbar disc herniation(Discharge Diagnosis) - [...] to and from your MRI, [facility]acy: [id number] Start Date: 06/01/23 Status: Ordered cyclobenzaprine 5 [...] hypermobility during flexion extension maneuvers Workstation ID: [id number] Final Dictated by:MD Soria Timothy J Dictated DT/TM:06/09/2023 1:52 Signed by:MD Soria Timothy J Signed (Electronic Signature):06/09/2023 1:51 p Social History Social History Type Response Smoking Status Current every day he sandy smoker Sex Male XR Spine Lumbar and Sacrum GE 2 Views * Contributor_system, [id number]: PERFORM Contributor_system, [id number]: PERFORM, VERIFY MD Soria Timothy J: VERIFY Event Display: Report Authored Date: [id number] EXAMINATION: XR Spine Lumbosacral 2 or 3 [...] hypermobility during flexion extension maneuvers Workstation ID: [id number] Final Dictated by:MD Soria Timothy J Dictated DT/TM:06/09/2023 1:52 Signed by:MD Soria Timothy J Signed (Electronic Signature):06/09/2023 1:51 p Patient Care team information Care Team Personnel Name: MD Wong Cynthia D Position: Referring Member Role: Primary Care Provider Address: Address: [address] [place] [address] [place] [address] Name: Haroon Bell Erika Position: Pharmacist Member Role: Pharmacy - Lifetime Care Team Related Persons Name: GELY SALDAÑA Address: [place] Address: home [address] [facility] [phone]
--- OUTSIDE RECORDS SUMMARY | 2023-12-01 14:43 | External Medical Summary | Continuity of Care Document ---
Author Name Unknown [facility] [address] [place] [address] [place] [id number] Care Team Providers Care Shell Press Operator Name Role Phone Orquidea Wong Primary Care Physician [phone] [id number] Date(s): 09/13/23 - 09/13/23 [place] [address] ARNOLDO SHETTY [address] [facility] [address], [facility] [address] [place] [phone] Encounter Diagnosis Body mass index [BMI] 28.0-28.9, adult(Discharge Diagnosis) - 09/13/23 Lumbar stenosis(Discharge Diagnosis) - 09/13/23 Lumbar disc herniation(Discharge Diagnosis) - 09/13/23 Discharge Disposition: Home or Self Care Attending Physician: DEV Hernández, Yoko Arnold Referring Physician: MD Wong Cynthia D Allergies, Adverse Reactions, Alerts No Known Medication Allergies Medications Ativan 0.5 mg oral tablet Start: 06/01/23 12:18:00 EDT, See Instructions, Disp# 2 tab, Refills: 0, Take one tab 1 hour prior to MRI om 06/08. Take second tab 15 min prior if needed. You will need transportation to and from your MRI, [id number] Start Date: 06/01/23 Status: Ordered gabapentin 600 mg oral tablet TAKE 1 TABLET BY MOUTH 3 TIMES A DAY Start Date: 06/09/23 Status: Ordered Tylenol Start: 01/07/23 14:00:00 EST, 500 mg =, PO, PRN: as needed for pain Start Date: 01/07/23 Status: Ordered Mental Status 09/13/23 Barriers to Learning one year None evide nt Mandatory Health Literacy Documentation Yes Health Literacy Communication Barriers N ever Primary Language Uzbek Problem List Condition Confirmation Course Effective Dates Status Health St atus Informant Left knee DJD Confirmed Active Pre-op exam Confirmed Active Diagnosis Diagnosis Type Effective Dates Health Status Clinical Service Informant Body mass index [BMI] 28.0-28.9, adult Discharge Diagnosis 09/13/23 Non-Specified Lumbar stenosis Discharge Diagnosis 09/13/23 Lumbar disc herniation Discharge Diagnosis 09/13/23 Procedures Procedure Date Related Diagnosis Body Site Status Tonsillectomy 1994 Completed Tonsillectomy Completed Vital Signs Most recent to oldest [Reference Range]: 1 Height 190.5 cm (09/13/23 11:03 AM) Patient Weight 102.0 kg (09/13/23 11:03 AM) Body Mass Index 28.11 kg/m2 (09/13/23 11:03 AM) Heart Rate 76 bpm (09/13/23 11:03 AM) Blood Pressure 131/89mmHg (09/13/23 11:03 AM) BP Location # 1 Right Arm (09/13/23 11:03 AM) Social History Social History Type Response Smoking Status Current every day he sandy smoker Sex Male Patient Care team information Care Team Personnel Name: MD Wong Cynthia D Position: Referring Member Role: Primary Care Provider Address: Address: [address] [place] [id number] Name: Haroon Bell Erika Position: Pharmacist Member Role: Pharmacy - Lifetime Name: Haroon Sutherland Brittani Position: Pharmacist Member Role: Pharmacy - Lifetime Care Team Related Persons Name: GELY SALDAÑA Address: [facility] Address: home [address] [place], [place] [id number]
--- OUTSIDE RECORDS SUMMARY | 2023-12-01 14:43 | External Medical Summary | Continuity of Care Document ---
Author Name Unknown Organization [facility] Address [address] [place] [id number] Care Team Providers Care Executive Vice President Of Sales Name Role Phone Orquidea Wong Primary Care Physician [phone] [facility] [phone] Date(s): 08/09/23 - 08/09/[address] [phone] Encounter Diagnosis Lumbar disc herniation(Discharge Diagnosis) - 08/09/23 Spinal stenosis, lumbar region without neurogenic claudication(Final) - Intervertebral disc disorders with radiculopathy, lumbar region(Final) - Spondylosis without myelopathy or radiculopathy, lumbar region(Final) - Obesity, unspecified(Final) - Other spondylosis with radiculopathy, site unspecified(Final) - Obstructive sleep apnea (adult) (pediatric)(Final) - Other seasonal allergic rhinitis(Final) - Body mass index [BMI] 25.0-25.9, adult(Final) - Personal history of nicotine dependence(Final) - Other machine long goods helper (current) drug therapy(Final) - Discharge Disposition: Home or Self Care Attending Physician: MD Grossman John P Admitting Physician: MD Grossman John P Allergies, Adverse Reactions, Alerts No Known Medication Allergies Functional Status 08/09/23 History of Fall in Last 3 Months Woodson N o Presence of Secondary Diagnosis Woodson Ye s Use of Ambulatory Aid Woodson None/bedrest /nurse assist IV/Heparin Lock Fall Risk Woodson Yes Gait/Transferring Fall Risk Woodson Normal /bedrest/immobile Mental Status Fall Risk Woodson Oriented t o own ability Woodson Fall Risk Score 35 Woodson Fall Risk Low Risk 08/09/23 Neurological Symptoms None ADLs Independent Facial Symmetry Symmetric Gait Unable to assess Swallowing Difficulty None Level of Consciousness Neuro Alert Hallucinations Present None Speech Pattern Clear Medications Ativan 0.5 mg oral tablet Start: 06/01/23 12:18:00 EDT, See Instructions, Disp# 2 tab, Refills: 0, Take one tab 1 hour prior to MRI om 06/08. Take second tab 15 min prior if needed. You will need transportation to and from your MRI, [id number] Start Date: 06/01/23 Status: Ordered cyclobenzaprine 5 mg oral tablet take 1 tablet by mouth three times a day if needed for muscle spasm Start Date: 06/09/23 Status: Ordered Flexeril 10 mg oral tablet Start: 08/09/23 7:25:00 EDT, 1 tab, PO, tid, Disp# 30 tab, PRN: as needed for spasm, Pharmacy: [facility] Start Date: 08/09/23 Status: Ordered gabapentin 600 mg oral tablet TAKE 1 TABLET BY MOUTH 3 TIMES A DAY Start Date: 06/09/23 Status: Ordered oxyCODONE 5 mg oral tablet Start: 08/09/23 7:25:00 EDT, 1 tab, PO, q6h, Disp# 30 tab, Refills: 0, Take 1 tab no more than every 4-6 hours only as needed for severe pain, PRN: as needed for pain, Pharmacy: [facility] Start Date: 08/09/23 Status: Ordered Tylenol Start: 01/07/23 14:00:00 EST, 500 mg =, PO, PRN: as needed for pain Start Date: 01/07/23 Status: Ordered Problem List Condition Confirmation Course Effective Dates Status Health atus Informant Left knee DJD Confirmed Active Pre-op exam Confirmed Active Diagnosis Diagnosis Type Effective Dates Health Status Clinical Service Informant Lumbar disc herniation Discharge Diagnosis 08/09/23 Non-Specified Procedures Procedure Date Related Diagnosis Body Site Status Tonsillectomy 1994 Completed Tonsillectomy Completed Vital Signs Most recent to oldest [Reference Range]: 1 2 3 Patient Weight 99.4 kg (08/09/23 6:45 AM) Temperature [36.5-37.9 DegC] 36.3 DegC *LOW* (08/09/23 12:16 PM) 36.0 DegC *LOW* (08/09/23 11:56 AM) 36.8 DegC (08/09/23 11:27 AM) Heart Rate 78 bpm (08/09/23 12:16 PM) 83 bpm (08/09/23 12:00 PM) 75 bpm (08/09/23 11:56 AM) Respiratory Rate 16 br/min (08/09/23 12:16 PM) 15 br/min (08/09/23 11:56 AM) 12 br/min (08/09/23 11:27 AM) Blood Pressure 128/81mmHg (08/09/23 12:16 PM) 151/98mmHg (08/09/23 12:00 PM) 159/94mmHg (08/09/23 11:56 AM) Mean Blood Pressure 96 mmHg (08/09/23 12:16 PM) 113 mmHg (08/09/23 12:00 PM) 111 mmHg (08/09/23 11:47 AM) Cuff Pulse Pressure 47 mmHg (08/09/23 12:16 PM) 53 mmHg (08/09/23 12:00 PM) 65 mmHg (08/09/23 11:47 AM) BP Location # 1 Right Arm (08/09/23 6:48 AM) Social History Social History Type Response Smoking Status Current every day he sandy smoker Sex Male Pre-OP H & P * MD Chauncey, Jose P: MODIFY MD Chauncey, Jose Lazaro: MODIFY Event Display: Pre-OP H & P Authored Date: [id number] PRE-OPERATIVE HISTORY AND PHYSICAL Name: DELFINO HOLDER Patient Number: [id number] : 1960 Date of Service: 08/08/2023 PRE-OP Diagnosis: _Disc herniation at L2-3 level causing severe central canal stenosis and bilateral lateral recess stenosis Planned Procedure: _L2-3 lami w/ discectomy Chief Complaint: _Back pain and BLE pain History of Present Illness (including history relevant to procedure): _ 62-year-old male who on January 14, 2023 underwent an L2-L4 left hemilaminectomy, and medial facetectomy secondary to stenosis at these levels causing left anterior thigh radiculopathy. He tolerated hisprocedure well and presents today for his second postoperative follow-up. At his last visit, Mr. Holder endorsed new left leg radiculopathy, which was likely secondary to postoperative inflammation, and back pain . He was amendable to physical therapy to help with his symptoms. At today's visit, Mr. 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 He describes the pain as a dull ache. His radiculopathy has completely resolved. He also denies any numbness, tingling, and weakness. From a pain medication perspective, he is currently taking Tylenol as needed which does help alleviate some of his pain. Mr. Holder states that he has had an 80% improvement in his preoperative symptoms and is very pleased with the results. A few days later he started having significant amount of back pain and bilateral leg pain. This wasquite severe similar to his the symptoms that he had prior to surgery. Secondary to this we decidedto get an MRI of his lumbar spine and he is here after his new MRI. I reviewed the MRI with him today shows that he has a significant/large disc herniation at L2-3 level causing severe central canal s tenosis and bilateral lateral recess stenosis. He states that he is unable to do much in terms of activity secondary to the pain that he is having. He has pain in his back in both legs. He walks quite slowly. He needs to see a down often. Review Of Systems: _ Negative Findings Constitutional _ _ HEENT _ _ Respiratory _ _ Cardiovascular _ _ Gastrointestinal _ _ Genitourinary _ _ Hem/Lymph _ _ Endocrine _ _ Musculoskeletal _ _ Immunologic _ _ Skin _ _ Neurologic _ _ Psychiatric _ _ Other _ _ Past Medical History: Problems: Left knee DJD Pre-op exam Procedure History Procedure Procedure Date Comments Tonsillectomy Tonsillectomy 1994 Allergies and Sensitivities: No Known Medication Allergies Current Home Meds: (Last Updated 06/24 08:35) LORazepam (Ativan 0.5 mg oral tablet) Take one tab 1 hour prior to MRI om 06/08. Take second tab 15 min prior if needed. You will need transportation to and from your MRI acetaminophen (Tylenol) 500 mg PO PRN: as needed for pain cyclobenzaprine (cyclobenzaprine 5 mg oral tablet) take 1 tablet by mouth three times a day if needed for muscle spasm gabapentin (gabapentin 600 mg oral tablet) TAKE 1 TABLET BY MOUTH 3 TIMES A DAY Vitals: No Vital Signs Data Available Weights: Last Updated 08/06/23 07:07 Date Temp Pulse BP RR SpO2 FIO2 Date Wt(kg) Wt(lb) 08/06 07:07 104.3 230 24 Hr Tmax: No Data Available Initial Wt: 07/05 104.3 kg 230 lb Physical Exam: (relevant to the procedure, including heart and lung evaluation) General: _ HEENT: _ Neck: _ Cardiac: _ no hemodynamically significant arrhythmias or valvulopathies Lungs: _ nonlabored breathing on room air Abdomen: _ Rectal: _ : _ Back: _ Extremities: _ Neuro: _ A&Ox3 Speech fluent Opens eyes spontaneously PERRL, EOMI Face symmetric, tongue midline Follows commands in all four extremities Strength 5/5 BUE with no drift Pain-limited strength BLE SILT BUE and BLE Skin: _ Studies of Lab Results (relevant to the procedure): _ ASSESSMENT/PLAN: _ He has an MRI of the lumbar spine as stated above. I had a nice conversation Mr. Huddleston and his wifetoday in clinic. I told him that at this time unfortunately I would recommend surgery. Surgery willentail L2-3 complete laminectomy and discectomy. I did speak with him about the possibility of a fusion procedure secondary to the large disc herniation that happened after having a foraminotomy at that level. He had x-rays with flexion-extension in the past that shows that level increases in the angulation. I did order new x-rays for today. These did not show instability. I did tell him that he is at increased risk of having a reherniation also with the decompression and discectomy. Unfortunately he has not being able to work now for almost a year secondary to the symptoms that he has been having. To OR for above. SURGICAL HISTORY AND PHYSICAL UPDATE - NO CHANGE Name: DELFINO HOLDER Patient Number: [id number] : 1960 Date of Service: 08/09/2023 Patient identity, procedure and procedure site were identified by me, the attending physician. I have personally seen and examined the patient. The History and Physical was reviewed, and there are nochanges in the patient's condition. I have confirmed that the necessity for the procedure is still p resent. Electronic Signature on File Electronically Reviewed/Signed by: Nacho Poole MD Author Signature Dt/Tm:08/09/2023 11:19 AM Resident Department of Neurosurgery Electronically Reviewed/Signed by: Jose Grossman MD Cosigner Signature Dt/Tm: 08/09/2023 07:35 AM Department of Neurosurgery [facility] * MD Sandhu Justin: MODIFY, PERFORM, SIGN, VERIFY, SIGN, MODIFY Event Display: Anes H&P Authored Date: [id number] Patient: DELFINO HOLDER Age: 62 years Sex: Male : 1960 Associated Diagnoses: None Author: MD Sandhu Justin Preoperative Information Pre-Operative Diagnosis: Lumbar herniated disc . Anesthiesia Preop Info: Procedure: L2-3 LAMINECTOMY,L2-3 DISCECTOMY Date: 08/09/23 07:30 Surgeons: MD Chauncey, Jose Lazaro Diagnosis: LUMBAR HERNIATED DISC, LUMBAR STENOSIS . History of Present Illness 62 year old 104kg male PMHx CORY (no CPAP) s/p L2-L4 hemilaminectomy in January, subsequently sufferedL2-3 level herniation causing severe central canal stenosis, for above I personally saw the patient and verified the history and physical examination as documented. I reviewed the residents or SERVICE TECHNICIAN COPIER's note and agree with the documented findings and plan of care. Updates and changes include: none. Denies URI, GERD, anes problems. MET > 4. +CORY - unable to tolerate Patient is appropriately NPO: no solid food within the past 8 hours and no clear liquids within thepast 2 hours. -Ang Prior aw -moderate mask, Mac 4, grade 3 view, 2 attempt No recent cardiac imaging on file MRI spine 06/08/23 IMPRESSION: 1. Large posterior central and left paracentral extruded disc at L2-L3 causing severe mass effect on thecal sac, left traversing and exiting nerve root. 2. Global disc bulge and posterior central and left paracentral disc protrusion at L4-L5 causing indentation over the left traversing nerve root. 3. Degenerative in the rest of the lumbar spine as described above. Medical History Medical Devices: Medical Devices: none . Cardiovascular: Patient reports unremarkable 2011 [facility] treadmill stress test, echo and holter monitor. Done due to palpitations. Symptoms not attributed to cardiac etiology. No cardiac followup indicated.. Medical Devices: None. Pulmonary: Ex-smoker (1ppd x 30 years, encouraged cessation; denies COPD diagnosis), No recent URI or covid 19 symptoms or exposure. Patient instructed to notify surgery service if this changes prior to surgery date; completed covid moderna vaccines x 2 and booster x 2 Seasonal allergies. PRN OTC allergy med. Obstructive Sleep Apnea: Unable to tolerate CPAP. Neurologic: Spinal stenosis. Health Status Allergies: Allergic Reactions (Selected) No Known Medication Allergies. Medications: Medication List (Selected) Prescriptions Prescribed Ativan 0.5 mg oral tablet: See Instructions, Take one tab 1 hour prior to MRI om 06/08. Take second tab 15 min prior if needed. You will need transportation to and from your MRI, 2 tab, 0 Refill(s) Documented Medications Documented Tylenol: 500 mg, PO, PRN: as needed for pain cyclobenzaprine 5 mg oral tablet: take 1 tablet by mouth three times a day if needed for muscle spasm gabapentin 600 mg oral tablet: TAKE 1 TABLET BY MOUTH 3 TIMES A DAY. Problem List: All Problems (Selected) Left knee DJD / SNOMED CT 2829746288 / Confirmed Pre-op exam / SNOMED CT 660549631 / Confirmed. Histories Procedure History: Tonsillectomy (756720775) in 1994 at 34 Years. Tonsillectomy (424917931).. Social History: Cigarrette Smoker? denies Other Tobacco Use: Alcohol: 20/ week Recreational Drugs: denies . Physical Examination VS/Measurements: Vital Signs 08/09/2023 06:48 EDT Temperature 36.4 DegC LOW Temperature Route Temporal Heart Rate 65 bpm Respiratory Rate 18 br/min Systolic Blood Pressure 121 mmHg Diastolic Blood Pressure 78 mmHg BP Location # 1 Right Arm Oxygen Therapy Room air SpO2 96 % . General: Alert and oriented, No acute distress. Airway: Unable to examine: thin johnson. Mallampati classification: II (soft palate, fauces, uvula visible). Distance: Thyromental, Hyomental distance ( 30-40 millimeters ). Mouth: Within normal limits, Teeth ( Within normal limits ). Neck: Full range of motion. Respiratory: Lungs are clear to auscultation, Respirations are non-labored, Breath sounds are equal. Cardiovascular: Normal rate, Regular rhythm, No murmur. Anesthesiologist Assessment and Plan Problems: No active cardiac conditions, No previous anesthetic complications, No a/w concerns. Risk of major adverse cardiac event (Revised Cardiac Risk Index): 0 = 0.4%. Cardiovascular risk associated with the procedure: Low (<1%). Disposition: No further testing or evaluation indicated preoperatively, may proceed with procedure as scheduled. ASA Classification: Class III. Anesthetic Plan: Premedication: None. Anesthetic technique discussed: General anesthesia. Induction discussed: Intravenously. Airway plan discussed: Oral endotracheal tube. Risks discussed: Nausea-vomiting, Sore throat, Serious complications, Aspiration. Informed consent: Signed by patient. Special techniques and precautions discussed: Nausea-vomiting, Transfusion of blood or blood products. History, Physical Exam, Assessment and Plan Completed: 08/09/2023 06:54:00, MD Sandhu Justin. Electronic Signature on File Electronically Reviewed/Signed by: Alvaro Sandhu MD Author Signature Dt/Tm:08/09/2023 06:55 AM Department of Anesthesia * MD Sandhu Justin: PERFORM Event Display: Anes H&P Authored Date: [id number] expiratory wheezes on exam. continues to smoke. Electronic Signature on File Electronically Reviewed/Signed by: Alvaro Sandhu MD Author Signature Dt/Tm:08/09/2023 07:18 AM Department of Anesthesia Surgical operation note * MD Grossman John P: MODIFY MD Grossman John P: MODIFY MD Virgilio, Nacho: MODIFY, SIGN, MODIFY, MODIFY Event Display: .Operative Report Authored Date: [id number] Name: DELFINO HOLDER Patient Number: [id number] : 1960 Date of Service: 08/09/2023 Preoperative Diagnosis Lumbar stenosis/lumbar radiculopathy, disc herniation L2-3eccentriceccentric to the left with some central herniation Central canal stenosis worse at L2-3 Bilaterallaminal recess stenosis worst at L2-3 Bilateral neuroforaminal stenosis History of prior L2-3 and 3 4left-sided laminotomy with foraminotomy Obesity Postoperative Diagnosis Lumbar stenosis/lumbar radiculopathy, disc herniation Same In Room Time 08/09/23 07:43:00 Operation LUMBAR LAMINECTOMY POSTERIOR, L2-3 LAMINECTOMY, L2-3 DISCECTOMY Surgeon(s) MD Chauncey, Jose Lazaro (Physician - Primary) Senior Director Creative Services(s) Sandra Poole MD, PhD, Franklin Robins MD Anesthesia MD Phoebe, Alvaro (Primary Attending) MD Romelia, Loulou (Resident) Estimated Blood Loss 50cc Urine Output See anesthesia report Lines, Tubes, Drains, Tourniquets No drains Specimen(s) Large disc fragment Implants/Devices: None Findings Severecentral canal and lateralrecess stenosis, facet hypertrophy,disc fragment. Complications None Indication for Surgery This is a [id number] initially presented in January 2023with severecentral stenosis at L2-3 and 3 4causingpredominantly left lower extremityradiculopathy and paresthesiasand at that time underwent an J9-I1wwnd-nmyshteshyhilztxei foraminotomies.His radiculopathy and pa resthesias largely resolved however hesubsequentlydeveloped worsening low back painand bilateral lateral thigh and leg pain radiating down to his knees.An MRI was obtainedwhich showeddisc herniation at L2-3causing severe nerve root impingement,canal stenosis, and he was also notedto have facet hypertrophyand degenerative changes.The risk benefits and alternativesto surgery were discussed thoroughlyand he elected to proceedand out to the [id number]. Technique SURGEON:Jose Grossman MD PRESCHOOL AIDE(s): Hugo Poole MD, PhD, Franklin Robins MD OPERATION PERFORMED: 1. L2-Q4uqgzxx laminectomy, bilateral medial facetectomy 2. Left sided approach L2-3Micro discectomy 3.Use of intra-operative fluoroscopy <1 hour. OPERATION: Patient was brought to major operative suite identified by neurosurgery anesthesia and operating staff. Team timeout was performed. Perioperative antibiotics were administered. Patient was intubated endotracheally and positioned prone on a open Benjamin table. Pressure points wereadequately padded. Fluoroscopy was utilized to localize the appropriate levels. This was based on his MRIand priorincision. Of note the patient does have a lumbarized S1,for consistency for documentation purposesthis will be referred to as L5 as identified by radiologyon his prior MRI. Using this levelis L5over the target areafor the complete laminectomy and microdiscectomy is the L2-L3 areaand that is how we will be referred tofor the remainder of this operative reportfor consistency purposes. An incision was planned over his prior incision,and the patient was prepped and draped in usual sterile fashion. #10 blade was utilized to open the skin. Bovie electrocautery was used to create an avascular plane down to spinous process and lamina. Fluoroscopy was once again utilized to confirm the appropriate levels in combinationwith anatomic landmarks identified from his previous surgery which include his prior foraminotomies on the left side. A rongeur was utilized to remove the spinous process down to the lamina. High- speed drill was utilized to remove the majority of the laminar bone. A curette was utilized to release the ligament from the lamina inferiorly. #3 and 4 Kerrison punch were utilized to carefully remove the remainderof the lamina. The ligament was also removed. A medial facetectomy was performed using a #3 and 4 Kerrison punch bilaterally. A blunt nerve hook was utilized to ensure adequate decompression of the exiting nerve root. Once we were happy with our decompression we turned attention to the L2-3 disc space. Fluoroscopywas once again utilized to confirmthis level. Approaching from the left side the thecal sacwasretracted slightly to the rightof the herniateddisc were visualized. Using a #11 bladethe disc annulus was incised,and a micropituitarywas usedto extractthe herniateddisc fragments. Once we were happywith the decompression and discectomyour attention was then turnedtohemostasis.A combinationof bipolar electrocautery and andmonopolar electrocautery wereutilized to obtain meticulous hemostasis. The wound was irrigatedcopiously with antibiotic infused saline. Flosealwas then applied and adequate hemostasis was achieved The fascia was closed with 0 Vicryl. The deep dermis closed with 2-0 Vicryl. The skin was closed with a 3-0 Monocryl runner. The incision was covered with a Xeroform and Primapore. I Dr. Grossman was present for the case except for skin incision. There were no complications. Counts were correct x2 at the end the case. Electronic Signature on File Electronically Reviewed/Signed by: Franklin Robins Author Signature Dt/Tm:08/09/2023 08:17 PM Resident Department of Neurosurgery Electronically Reviewed/Signed by: Nacho Poole MD Cosigner Signature Dt/Tm: 08/10/2023 11:51 AM Resident Department of Neurosurgery Electronically Reviewed/Signed by: Jose Grossman MD Cosigner Signature Dt/Tm: 08/10/2023 12:23 PM Department of Neurosurgery OA Note * MD Virgilio, Nacho: PERFORM Event Display: Brief Operative Note Authored Date: [id number] BRIEF OPERATIVE NOTE Name: DELFINO HOLDER Patient Number: [id number] : 1960 Date of Service: 08/09/2023 Pre-op Diagnosis: _ L2-3 disc herniation Post-op Diagnosis: _ Same Procedure: _ L2-3 lami w/ microdisc Surgeon: _ JUAN JOSE Grossman MD Assistants: _ Hugo Poole MD PhD, Franklin Robins MD MBS Anesthesia: _ GETA Estimated Blood Loss: _ X Less than 50ml Drains: _ None Fluids: _ Per EMAR Urinary Output: _ None Condition: _ Stable to PACU Complications: _ None apparent Specimen: _ X None Findings: _ Good decompression at above level Large disc fragments removed Check one _ Pharmacologic VTE prophylaxis not indicated _ Standard VTE prophylactic regimen ordered X Pharmacologic VTE prophylaxis contraindicated due to increased risk of intraoperative and / or postoperative bleeding Check one _ No antibiotics indicated X Standard prophylactic antibiotic regimen ordered _ Antibiotic regimen changed due to concern for infection Electronic Signature on File Electronically Reviewed/Signed by: Nacho Poole MD Author Signature Dt/Tm:08/09/2023 11:18 AM Resident Department of Neurosurgery [facility] Patient Care team information Care Team Personnel Name: MD Marvin, Orquidea Vásquez Position: Referring Member Role: Primary Care Provider Address: Address: [address] [place] [address] [place] [address] Name: Haroon Bell Erika Position: Pharmacist Member Role: Pharmacy - Lifetime Name: Haroon Sutherland Brittani Position: Pharmacist Member Role: Pharmacy - Lifetime Care Team Related Persons Name: PIOTR GELY A Address: [facility] Address: [address] [place] [id number]
[2023-12-01 15:37] LABS: Lyme Ab IgG w/WB Rflx Negative (Negative)
[2023-12-01 15:53] LABS: Lyme Ab IgM w/WB Rflx Equivocal (Negative)
[2023-12-01] MEDS ORDERED: INFLUENZA VIRUS QUADRIVALENT VACCINE (IIV4) 0.5 ML SYR IM ONE (16:30)
[2023-12-01] MEDS: DOXYCYCLINE HYCLATE 100 MG in DEXTROSE 5% MINI-B 100 ML IV SCH (19:52)
--- NOTE | 2023-12-01 22:06 | XCELERA ---
[id number] \\[email or web address]\[id number]
[2023-12-02] MEDS: DOXYCYCLINE HYCLATE 100 MG in DEXTROSE 5% MINI-B 100 ML IV SCH (05:57)
[2023-12-02 08:01] LABS: Basophils # (auto) 0.05 K/uL (0.00-0.20); Basophils % (auto) 0.7 %; Eosinophils # (auto) 0.12 K/uL (0.00-0.50); Eosinophils % (auto) 1.6 %; Hematocrit (blood only) 44.6 % (42.0-52.0); Hemoglobin 15.3 g/dl (14.0-18.0); Immature Granulocytes # (auto) 0.02 K/uL (0.01-0.20); Immature Granulocytes % (auto) 0.3 %; Lymphocytes # (auto) 2.34 K/uL (1.20-3.40); Lymphocytes % (auto) 30.7 %; Mean Corpuscular Hemoglobin 29.5 pg (25.0-34.0); Mean Corpuscular Hgb Conc 34.3 g/dL (32.0-36.0); Mean Corpuscular Volume 85.9 fL (80.0-100.0); Mean Platelet Volume 11.3 fL (9.4-12.4); Monocytes # (auto) 0.58 K/uL (0.11-0.59); Monocytes % (auto) 7.6 %; Neutrophils # (auto) 4.52 K/uL (1.40-6.50); Neutrophils % (auto) 59.1 %; Platelet Count 250 K/uL (130-400); RDW Coefficient of Variation 13.5 % (11.5-14.5); RDW Standard Deviation 42.1 fL (36.4-46.3); Red Blood Count 5.19 M/uL (4.70-6.10); White Blood Count 7.63 K/ul (4.8-10.8)
[2023-12-02 08:20] LABS: Calcium 8.7 mg/dl (8.6-10.3); Creatinine Clr Calc Pharmacy 92.7 ml/min; Est GFR (African American) 93.7 ml/min; Est GFR (Non-African American) 80.9 ml/min; Potassium 4.4 mmol/L (3.5-5.1)
[2023-12-02] MEDS ORDERED: cefTRIAXone SODIUM 2,000 MG in DEXTROSE 5 % MINI-B 50 ML IV SCH (09:00)
[2023-12-02] MEDS ORDERED: WATER, STERILE FOR INJ 10 ML VIAL ONE ×2 (09:13→09:14)
[2023-12-02] MEDS ORDERED: LIDOCAINE 1% LOCAL 20 ML VIAL ONE (09:13)
[2023-12-02] MEDS ORDERED: VANCOMYCIN HCL 1000MG/20ML VIAL ONE (09:14)
[2023-12-02] MEDS ORDERED: BUPIVACAINE 0.25% PF 30 ML VIAL ONE (09:14)
[2023-12-02] MEDS ORDERED: MIDAZOLAM HCL 5 MG/ML 1 ML VIAL ONE (09:15)
[2023-12-02] MEDS ORDERED: ceFAZolin 330 MG/ML 1 GM VIAL ONE (09:15)
[2023-12-02] MEDS ORDERED: fentaNYL citrate PF 100 MCG/2 ML VIAL ONE (09:15)
--- NOTE | 2023-12-02 09:25 | Pre Anesthesia Assessment ---
Date of Service December 02, 2023 Pre Sedation Assessment Vital Signs Temp Pulse Pulse Resp BP BP BP 12/02/23 08:32 62 16 120/70 12/02/23 07:32 36.5 C 61 18 110/78 12/02/23 03:26 36.6 C 62 18 113/72 12/02/23 03:07 61 13 12/01/23 23:28 58 L 21 12/01/23 22:00 62 12/01/23 20:00 36.6 C 62 18 127/80 12/01/23 16:33 63 12/01/23 15:40 36.6 C 62 16 144/79 H 12/01/23 15:00 60 18 127/78 12/01/23 14:24 12/01/23 13:20 68 18 12/01/23 13:10 63 15 12/01/23 13:00 71 18 94/58 L 12/01/23 12:39 68 12/01/23 12:30 75 17 125/78 12/01/23 12:00 69 14 118/80 12/01/23 11:52 71 12/01/23 11:38 85 21 131/92 12/01/23 11:36 77 17 138/89 12/01/23 11:34 77 20 144/92 H 12/01/23 10:51 36.5 C 94 H 16 120/77 Pulse Ox O2 Del Method FiO2 12/02/23 08:32 95 Room Air 12/02/23 07:32 93 Room Air 12/02/23 03:26 Room Air, CPAP 12/02/23 03:07 21 12/01/23 23:28 94 21 12/01/23 22:00 12/01/23 20:00 94 Room Air 12/01/23 16:33 12/01/23 15:40 99 Room Air 12/01/23 15:00 97 Room Air 12/01/23 14:24 Room Air 12/01/23 13:20 97 12/01/23 13:10 95 12/01/23 13:00 97 12/01/23 12:39 12/01/23 12:30 97 12/01/23 12:00 94 12/01/23 11:52 96 Room Air 12/01/23 11:38 95 12/01/23 11:36 95 12/01/23 11:34 96 Room Air 12/01/23 10:51 96 Room Air Cardiovascular + regular rate and + regular rhythm Respiratory + respiratory effort normal Pre-Sedation Airway Assessment Smoking Status: Current every day smoker Hx Sleep Apnea: No Hx Difficult Intubation: No Short, Thick Neck: No Thyromental Distance: > or= 3.5 Finger Breadths Oral Cavity: + WNL Mallampati Class: III ASA: ASA3 NPO Status Date of Last Intake of Fluids: 12/01/23 Time of Last Intake of Fluids: 20:00 Date of Last Intake of Solid Food: 12/01/23 Time of Last Intake of Solid Foods: 20:00 Procedure Planning Contraindications for Sedation: none Current Medications Reviewed: Yes Notes The planned sedation has been discussed with the patient. Informed Consent was obtained. I have identified the patient, determined the appropriateness of sedation and have assessed the patient immediately prior to the procedure. All medicine(s) and interventions are by my order.
[2023-12-02] MEDS ORDERED: oxyCODONE HCL IR 5 MG TAB (IMMEDIATE RELEASE) PO PRN (10:47)
--- NOTE | 2023-12-02 10:47 | Electrophysiology Report ---
Date of Service December 02, 2023 Electrophysiology Procedure Electrophysiology Procedure Report Procedure performed: Implantation of dual-chamber permanent pacemaker with left bundle pacing lead Staff doctor of osteopathy: Jamie Pringle MD Indication: The patient is a 62-year-old gentleman with a history of syncope. He was noted during episodes to have sinus arrest. It was therefore felt to be a good candidate for permanent pacemaker due to symptomatic nonreversible sinus node dysfunction. Dual-chamber device was selected as he is currently in sinus rhythm which to maintain AV synchrony. Procedure in detail: The patient was informed of the risks benefits and alternatives to the intended procedure and she wished to proceed. She was taken to the electrophysiology suite in a fasting state. A preoperative antibiotic had been administered. The patient was monitored electrocardiographically throughout today's procedure and conscious sedation was administered per protocol. The left upper pectoral area is prepped and draped in usual sterile fashion. This area was anesthetized using subcutaneous administration of a xylocaine solution. An incision was made at this site and carried down to the prepectoralis fascia using sharp dissection. Electrocautery was also employed for dissection as well as for hemostasis. A device pocket was fashioned tissues above the pectoralis muscle. Subsequent to this maneuver the left axillary vein was accessed using modified Seldinger technique. A sheath was placed over guidewire and used facilitate passage of the guiding catheter for mapping of the interventricular septum. Once appropriate location was identified a pacing lead was advanced into the interventricular septum until the appropriate electro cardiographic characteristics were obtained. Adequate sensing threshold parameters were also obtained prior to removal of the guiding catheter. A sheath was placed over the remaining guidewire and used facilitate passage of the pacing lead to the right atrium under fluoroscopic guidance. Adequate sensing threshold parameters were obtained prior to active fixation of this lead to the endocardial surface. The proximal portion leads were then sutured the prepectoral fascia using nonabsorbable suture. The device pocket was irrigated with antibiotic solution. The leads were then attached to the device. The device and leads were then placed in the pocket and pocket was closed in 3 layers of absorbable suture. Steri-Strips and sterile dressing were applied. The device was tested noninvasively prior to conclusion the procedure. The patient tolerated procedure well there no immediate complications. Equipment used: New pulse generator: Registered [employer]itian [employer]. Model number: [id number] serial number [id number] Right atrial lead: Registered Dietitian [employer]. Model number: 5076 serial number [id number] Right ventricular lead: Registered Dietitian [employer]. Model number: 330 serial number [id number] Measured data: Right atrial lead: P-waves measured 1 mV. Pacing threshold was 1 volts at 0.4 milliseconds with a pacing impedance of 738 Ohms Right ventricular lead: R-waves measured 7.6 mV. Pacing threshold 0.75 volts at 0.4 milliseconds with a pacing impedance of 996 Ohms Impression: Successful implantation of dual-chamber permanent pacemaker with left bundle pacing lead [facility] Electrophysiology codes Pacing Procedure 1: Pacin Insert/Replace Pacer A & V PG Moderate Sedation Codes Moderate Sedation Codes Procedure 1: Sedation/Anesthesia: 52217 Mod Sedation by the same physician;Init15 Min Child Age 5 & Up Procedure 2: Sedation/Anesthesia: 75275 Mod Sedation by the same physician; Ea [id number] Minutes
--- NOTE | 2023-12-02 10:47 | Post Anesthesia Assessment ---
Date of Service December 02, 2023 Post Sedation Assessment Vital Signs Temp Pulse Pulse Resp BP BP BP 12/02/23 08:32 62 16 120/70 12/02/23 08:02 64 12/02/23 07:32 36.5 C 61 18 110/78 12/02/23 03:26 36.6 C 62 18 113/72 12/02/23 03:07 61 13 12/01/23 23:28 58 L 21 12/01/23 22:00 62 12/01/23 20:00 36.6 C 62 18 127/80 12/01/23 16:33 63 12/01/23 15:40 36.6 C 62 16 144/79 H 12/01/23 15:00 60 18 127/78 12/01/23 14:24 12/01/23 13:20 68 18 12/01/23 13:10 63 15 12/01/23 13:00 71 18 94/58 L 12/01/23 12:39 68 12/01/23 12:30 75 17 125/78 12/01/23 12:00 69 14 118/80 12/01/23 11:52 71 12/01/23 11:38 85 21 131/92 12/01/23 11:36 77 17 138/89 12/01/23 11:34 77 20 144/92 H 12/01/23 10:51 36.5 C 94 H 16 120/77 Pulse Ox O2 Del Method FiO2 12/02/23 08:32 95 Room Air 12/02/23 08:02 12/02/23 07:32 93 Room Air 12/02/23 03:26 Room Air, CPAP 12/02/23 03:07 21 12/01/23 23:28 94 21 12/01/23 22:00 12/01/23 20:00 94 Room Air 12/01/23 16:33 12/01/23 15:40 99 Room Air 12/01/23 15:00 97 Room Air 12/01/23 14:24 Room Air 12/01/23 13:20 97 12/01/23 13:10 95 12/01/23 13:00 97 12/01/23 12:39 12/01/23 12:30 97 12/01/23 12:00 94 12/01/23 11:52 96 Room Air 12/01/23 11:38 95 12/01/23 11:36 95 12/01/23 11:34 96 Room Air 12/01/23 10:51 96 Room Air Recovery Score Activity: Moves 4 extremities Respiration: Deep Breath/Cough Circulation: +/-20% PreAnes Value Consciousness: Fully Awake Oxygen Saturation: > 92% On Room Air Discharge Sedation Level of Care: Fast Track Phase II Post Sedation Plan On clinical assessment, the patient appears to have tolerated the sedation without complications. Patient is recovering as anticipated. Patient will continue to be monitored by nursing and may be discharged when sedation discharge criteria are met per below protocol. Upon Completions of procedure up to 15 minutes continue every 5 minute vital signs and the P.A.R. score; then discharge to a Phase I or Fast Track to Phase II per the following guidelines: * Discharge Patient to appropriate Phase II area if PAR is 8 or greater or return to pre- procedure baseline. The post - procedure orders will be as directed. * If PAR score is less than 8 or not return to pre-procedure baseline then patient will follow Phase I monitoring till PAR is reached for Phase II. The Phase I may be done in procedure room or may call to secure a Phase I area. * If naloxone or flumazenil are used for reversal, hold in Phase I for continued monitoring from when last reversal dose was given for a minimum of 60 minutes or longer pending the nurse and/or physician discretion of patient condition before discharge to Phase II. Please call the Sedation Physician to re-evaluate and complete post-note for discharge to Phase II area. Do NOT discharge from procedure sedation or Phase 1 until post- sedation evaluation note is complete by procedure /sedation MD Sedation Discharge Instructions to be given to the patient at discharge to home.
--- NOTE | 2023-12-02 14:44 | XRay Report ---
XR chest 2V PA/lateral HISTORY: 62 years-old Male post pacer. NO lifting left arm status post placement of a left subclavia n pacer COMPARISON: Chest radiograph 12/01/2023 TECHNIQUE: PA and lateral views of the chest FINDINGS: Status post placement of a dual lead left subclavian pacer. No pneumothorax, pleural effusion or airs pace consolidation. The bones appear grossly intact. IMPRESSION: Status post placement of a dual lead left subclavian pacer. No postprocedural pneumothora x. ACT 112: Negative or not required by law. The above report was generated using voice recognition software. It may contain grammatical, syntax o r spelling errors. Electronically signed by: Willis Rosales M.D. 12/02/2023 2:43 PM
--- NOTE | 2023-12-02 16:19 | Discharge Summary ---
Discharge Summary Date of Service December 02, 2023 Notes For Next Care Provider Follow-up Western blot for Lyme disease and decide if IV ceftriaxone needs to be continued Medication Changes From Visit Added ceftriaxone 2 g IV every 24 hours x 21 days Acetaminophen 650 mg p.o. every 4-6 hours as needed pain Admission HPI Per Admitting Provider Jordan is a 62-year-old male with a past medical history of lumbar radiculopathy s/p L2-L3 laminectomy/microdiscectomy, hyperlipidemia, distant history of presyncope suspected to be related to blood pressure, hemorrhoids, and no prior cardiopulmonary disease who presents for an episode of syncope which occurred while sitting in his chair and which was preceded by 2 recent upper episodes of sudden lightheadedness and presyncope. He has no leukocytosis, BSG was 111, he is not volume contracted, with normal renal function, and a normal potassium on admission. High-sensitivity troponin is normal, TSH is normal, and EKG does not show any acute ischemic change but rhythm reviewed does show a 5.2-second sinus pause. Everardo reports he has been feeling lightheaded and passed out twice today Prior to this has had a 'very kun sensation' where he was very suddenly lightheaded and presyncopal this passed Wednesday. This was the first time he felt dizzi since 30 years ago when he had a similar episode but was told it was from low blood pressure at that time. Intermittent episodes since Wednesday with some but less presycnope, ~5 episodes total. Today was the first time he lost conciousnes/syncopized. Was drinking coffee playing games on his phone, felt the lightheadedness coming just for a few seconds then woke up with coffee all over him. Not more than 10 seconds of warning. 2nd episode happened while in the ER, again had seconds notice. Was only out for ~10 seconds at the most per his who was with. No weakness, no confusion after. No shaking. no bowel/bladder incontinence. Pt does endorse a history of sleep apnea, was tested for it 20 years ago but does not use a CPAP No recent fevers, chills. Has had some sweats around his episodes when waking up. Denies chest pain, denies chest pressure. no shortness of breath. Is able to walk, go up stairs, and shovel snow yesterday with no pain, no dyspnea, no chest pressure although notes he doesn't do 'a lot since back surgery last year.' No history of lung or kidney disease No leg swelling. No orthopnea No rashes. No tick bites. No leg swelling. Hx of a holter monitor FHx: Father with adrianne in 50-60s, also had 'mild diabetes not on insulin.' Medical History: Reviewed Medications: Reviewed. No prescription medications. Takes allergy pills PRN took 1x generic OTC med but doesn't remember the name Surgical History: Reviewed Family history: Reviewed Allergies: Reviewed. NKDA Social History: Social EtOH use ~2-3 days per week, 2-3 in a sitting generally. No history shakes or withdrawal. Very rare reactional marijuana. Cigarette use 1ppd x20 years. Code Status: Full Code Principal Dx & Hospital Course #1 = Principal Diagnosis (1) Sinus pause: Syncope with sinus pause 5.2seconds witnessed in the ER. Patient with an episode of syncope while sitting in his recliner chair. 2 prior episodes of sudden lightheadedness and presyncope which subsequently improved. Had an episode while sitting drinking coffee with some lightheadedness and then woke up back in his recliner unaware how much time it passed. Last echo 01/2022 EF 55-60%, no valvular pathology, no regional wall motion abnormalities, stable from prior. Repeat echocardiogram here similar - Holter monitor 2021 performed for palpitations with IVCD without significant pauses or AV block, normal NM and QT at varying rates, rare isolated APD's, rare isolated VPD's. No significant arrhythmia noted, dizziness and symptoms or flagged as occurring during normal sinus rhythm and during sinus tachycardia Admitting EKG iRBBB, nsr, NM 162, QTc 466. 5.2 second pause without NM abnormality prior/after noted while on telemetry. - No anginal sx. troponin normal. Patient is not on any zoe blocking agents - Lyme testing shows equivocal positive IgM. He did have acute Lyme disease in 2020 and was treated for this with doxycycline. Nonetheless, there is a possibility he could have Lyme carditis as there is no other explanation at this time for the current issues. Will start ceftriaxone 2000 mg IV every 24 hours x 21 days or at least until Western blot results are reviewed Appreciate cardiology consultation-had permanent pacemaker placement on 12/02. Doing well postoperatively. Chest x-ray without pneumothorax. Patient is cleared to return home as per cardiology and will follow-up with cardiology in the office in 1 week. (2) Lyme carditis: As above, Lyme IgM titer is equivocal, IgG negative He denies any fevers or chills, joint pains, rashes. His does report that he has been more fatigued and napping more lately but he denies this. 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 [place] 90% improvement of symptoms postoperatively, feels he is doing well since (4) Obstructive sleep apnea: Did have outpt sleep study. Pt did not tolerate CPAP as outpatient, but has not tried a machine in many years CPAP qHS PRN. Followup as outpt to look at newer resources/nasal pillow/etc for improved tolerance (5) Tobacco abuse: Cessation recommended nicotine patch PRN Plan DVT PPx: SCDs Dispo: Stable for discharge home Discharge Exam Constitutional WD/WN, vitals as above Neck trachea midline, no thyromegaly Respiratory normal respiratory effort, lungs clear to auscultation Cardiovascular RRR, no murmur, no edema Chest (Breasts) Chest: + pacemaker (Left anterior chest wall with dressing CDI) Gastrointestinal (Abdomen) normal bowel sounds, soft, nontender, no hepatosplenomegaly Musculoskeletal Extremities: extremities normal to inspection; no cyanosis and no clubbing Skin no rashes, warm and dry Neurologic moves all extremities and awake; no focal motor deficits Psychiatric A+Ox3, euthymic affect Lymphatic no lymphedema Updated Medication List Medication Instructions Recorded Confirmed Type loratadine 10 mg tablet (Claritin) 10 mg PO DAILY PRN allergies 12/01/23 12/01/23 History Hospital Stay Data Consultations 12/01/23 12:54 Consult Cardiology Routine ED Decision to Admit Stat Procedures Performed Operation Date: 12/02/23 10:00 Actual Procedures p Pacer with A/V Leads (Dual) - Jamie Pringle MD Diagnostic Imagining Performed 12/01/23 11:25 CT head/brain wo con Stat 12/02/23 07:15 EP Lab Images for PACS ONCE Pending Results Patient Have Any Pending Studies at Discharge: Yes (Lyme disease Western blot) Discharge Instructions Given to Patient (Per Discharging Provider) You were admitted after passing out and found to have long pauses in your heartbeat and required a pacemaker to be placed. Your Lyme disease test was borderline positive and a confirmatory test called a Western blot was sent out for testing. This test will take 5 to 7 days to return. In the meantime, in case this is Lyme carditis which means Lyme disease is affecting your heart, you were started on IV antibiotics. The recommendation for Lyme carditis is 3 weeks of IV ceftriaxone, however if your confirmatory test returns negative, then your PCP may want to discontinue the antibiotics earlier than 3 weeks. You can discuss this at your follow-up appointment. You will need to go to the [facility] as directed by the case finisher for your IV antibiotics each day. Total Time Total Time Spent Total Time Spent (In Minutes): 45 minutes Total Time Includes: Examination of the Patient, Discharge Planning, Medication Reconciliation, Communication With Other Providers (Cardiology) and Other (manager environmental) Coding Level of Care Code 26773 INP/OBS DISCH >30 MIN Diagnoses Sinus pause I45.5 Lyme carditis A69.29 Lumbar radiculopathy M54.16 Obstructive sleep apnea G47.33 Tobacco abuse Z72.0
--- NOTE | 2023-12-03 21:43 | Electrocardiogram Report ---
Test Reason : Blood Pressure : / mmHG Vent. Rate : 087 BPM Atrial Rate : 087 BPM P-R Int : 162 ms QRS Dur : 106 ms QT Int : 388 ms P-R-T Axes : 068 -67 070 degrees QTc Int : 466 ms Normal sinus rhythm Left axis deviation Incomplete right bundle branch block Abnormal ECG When compared with ECG of 26-AUG-2003 11:43, Vent. rate has increased BY [address] no longer elevated in Anterior leads T wave inversion now evident in Anterior leads Confirmed by Marvin Dockery ([id number]) on 12/03/2023 9:42:37 PM Referred By: REFERRED SELF Confirmed By:Marvin Dockery
[2023-12-07 02:48] LABS: 18KDIGG Band REACTIVE; 23KDIGG Band NON-REACTIVE; 23KDIGM Band REACTIVE; 28KDIGG Band NON-REACTIVE; 30KDIGG Band NON-REACTIVE; 39KDIGG Band NON-REACTIVE; 39KDIGM Band NON-REACTIVE; 41KDIGG Band NON-REACTIVE; 41KDIGM Band NON-REACTIVE; 45KDIGG Band NON-REACTIVE; 58KDIGG Band REACTIVE; 66KDIGG Band NON-REACTIVE; 93KDIGG Band NON-REACTIVE; Lyme Antibodies, WB IgG NEGATIVE (NEGATIVE); Lyme Antibodies, WB IgM NEGATIVE (NEGATIVE)
== END 2023-12-02 17:30 | disposition home or self-care (01) ==
LOC: ED 10:41 → INTOOBSV 13:20 → SUATTDRO 13:20 → EDINP 13:20 → 2S 14:24

== ENCOUNTER 2025-08-31 05:27 | Observation (INO) ==
--- NOTE | 2025-07-26 08:36 | PAT Medication Instructions ---
Medication Instructions Date of Service July 26, 2025 Home Medications Medication Instructions Recorded acetaminophen 325 mg tablet 650 mg (2 x 325 mg) PO Q4H PRN 12/02/23 pain #30 tabs loratadine 10 mg tablet (Claritin) 10 mg PO QAM allergies acetaminophen 325 mg tablet 650 mg (2 x 325 mg) PO Q4H PRN pain psyllium husk 3.4 gram/5.4 gram oral powder (Metamucil) 1 tsp PO QPM rosuvastatin 10 mg tablet 10 mg PO QAM DO NOT take the morning of surgery loratadine 10 mg tablet (Claritin) 10 mg PO QAM allergies Take morning of surgery With a small sip of water, OTHERWISE NOTHING TO EAT OR DRINK AFTER MIDNIGHT: acetaminophen 325 mg tablet 650 mg (2 x 325 mg) PO Q4H PRN pain (if needed) Take evening before surgery acetaminophen 325 mg tablet 650 mg (2 x 325 mg) PO Q4H PRN pain (if needed) psyllium husk 3.4 gram/5.4 gram oral powder (Metamucil) 1 tsp PO QPM Other Notes If you have any questions please call us at [phone] or [phone] or [phone] or [phone]
--- NOTE | 2025-07-30 10:54 | Anesthesiology Consultation ---
Date of Service July 30, 2025 Assessment & Plan (1) Encounter for pre-operative examination: Chart Review Chart Review: Acceptable Risk for Surgery (pending review of routine PCP appt ) and Patient seen in Pre Admission Testing - Awaiting routine PCP appt 08/24/25 (FERNANDO Wong) - Patient is NOT an ideal OPJ candidate- currently 23 hour obs Per PAT appt on 07/30/25, no recent illness/disease exposures, illness related symptoms, or recent illness/disease positive tests. Will leave to surgeon's discretion if preop Covid testing needed Seen by EP 05/07/25= "seen for one month follow up in our Device [facility]... Sinus arrest: Unclear etiology. However, quite symptomatic with episodes of syncope leading up to his device implantation. None since implantation. Normally functioning dual-chamber permanent pacemaker. No significant arrhythmias identified... Dizziness: Curious that he feels the symptoms are similar to those experienced prior to his device implant. However, no arrhythmia identified. I do not think he is having bradycardia given normal device function. Perhaps more related to orthostasis, blood pressure or neurologic issue... Follow up in six months" (Patient denied any recent dizziness at PAT appt on 07/30/25) Teaching & Discussion Pre-Anesthesia Teaching/Discussion Notes: Instructed NPO after midnight before surgery,except medications with 15 cc of water. Medication instructions provided according to the [facility] guidelines. History Surgery Operation Date: 08/31/25 10:00 Proposed Procedures p Robotic Assisted Left Total Knee Arthroplasty - Cameron Andrade DO Height/Weight Height: 6 ft 3 in Weight: 106.5 kg Allergies Allergy/AdvReac Type Severity Reaction Status Date / Time No Known Allergies Allergy Unknown Verified 07/25/25 15:02 Medications Home Medications Medication Instructions Recorded Confirmed Last Taken loratadine 10 mg tablet (Claritin) 10 mg PO QAM allergies 12/01/23 07/25/25 Unknown acetaminophen 325 mg tablet 650 mg (2 x 325 mg) PO Q4H PRN 12/02/23 07/25/25 Unknown pain #30 tabs psyllium husk 3.4 gram/5.4 gram 1 tsp PO QPM 07/25/25 07/25/25 Unknown oral powder (Metamucil) rosuvastatin 10 mg tablet 10 mg PO QAM 07/25/25 07/25/25 Unknown Past Medical History Medical History Hyperlipidemia Osteoarthritis of knees, bilateral Pacemaker adina XT- placed 11/2023 Sinus arrest 11/2023--per pt reason for pacemaker--per Dr. Pringle-"symptomatic nonreversible sinus node dysfunction"--no issues since pacemaker placed Sleep apnea cpap Exercise / Class Metabolic Activity II 4-5 Yardwork/Stairs/Walk up hill (one flight of stairs - no chest pain or SOB ) Past Family History Family History Unknown Hypertension Other Family history of diabetes mellitus in father No family history of adverse response to anesthesia Denies family history of Ovarian cancer Prostate cancer Myocardial infarction Breast cancer Colorectal cancer Past Surgical History Surgical History History of colonoscopy History of lumbosacral spine surgery (2022) x2 History of tonsillectomy Status post placement of cardiac pacemaker (11/2023) adina xt Past Anesthesia History No Hx of Anesthesia Complications and No Family Hx of Anesthesia Complications History of PONV No Hx of PONV and No Hx of Motion Sickness Social History Smoking Status: Current every day smoker tobacco type: cigarettes Smoking cigarettes per day: 20 cigs a day (advised on policy) Do You Dip or Chew Tobacco: No Hx Alcohol Use: Yes Alcohol type: beer alcohol intake frequency: a few times a week Hx Substance Use: Yes substance use type: marijuana (very occ - socially ) Review of Systems Patient denies chest pain, shortness of breath, dyspnea on exertion, reflux, cough, wheezing, palpitations. No hx of seizures, stroke, [place]. No hx of blood clots or blood transfusions Physical Exam Vital Signs VITALS BP 127/76 P 63 TEMP 97.7 SP02 98% RESP 16 Constitutional no acute distress ENMT Mouth: no TMJ clicking Thyromental Distance: < 3.5 Finger Breadths (3.0) Mallampati Class: I Neck + facial hair (advised to trim/shave); neck extension not limited Respiratory normal respiratory effort; no respiratory distress Auscultation: lungs clear to auscultation bilaterally and + diminished lung sounds (minimally throughout); no wheezes Cardiovascular Rate/Rhythm: regular rate and regular rhythm Heart Sounds: no murmur Vessels: no carotid bruit Musculoskeletal Spine: no pain with cervical ROM Extremities: extremities normal to inspection Psychiatric Orientation: alert Lab Results Anesthesia Preop Results Results Anesthesia Widget: WBC 11.25 K/ul (4.8-10.8) H 07/30/25 Hgb 15.5 g/dl (14.0-18.0) 07/30/25 Hct 46.7 % (42.0-52.0) 07/30/25 Plt 259 K/uL (130-400) 07/30/25 Na 139 mmol/L (136-145) 07/30/25 K 4.1 mmol/L (3.5-5.1) 07/30/25 Cl 105 mmol/L (98-107) 07/30/25 CO2 27 mmol/L (21-32) 07/30/25 BUN 11 mg/dl (6-23) 07/30/25 Creat 0.79 mg/dl (0.6-1.4) 07/30/25 Glucose Level 115 mg/dl (70-99(Fasting)) H 07/30/25 PT 10.8 Seconds (9.0-12.0) 07/30/25 PTT 31 Seconds (21-31) 07/30/25 INR 1.0 (0.9-1.1) 07/30/25 Blood Type A Positive 07/30/25 Antibody Screen NEGATIVE 07/30/25 Testing Electrocardiogram Date: 07/30/25 Atrial paced rhythm at 60bpm RBBB When compared to EKG from Dec 01, 2023- electronic atrial pacemaker has replaced sinus rhythm, non specific change in ST segment in anterior leads per cardio Echocardiogram Date: 12/01/23 EF: 60-65% LV Function: normal RWMA: + none Other Findings: + LVH (mild/concentric) and + diastolic dysfunction (type I ) Valvular Disease: + no significant valvular disease Normal estimated RVSP Borderline dilated aortic root No significant change from prior study on 02/03/22 per cardio Other Testing Pacemaker check 03/28/2025 = [employer] device Battery status 13.9 years. Mode: AAI <--> DDD Atrial paced 12%. Ventricular paced <0.1%. EMGs illustrate SVT, longest available 2 seconds in duration. Normal device function. Minimal pacing overall. No other arrhythmia. Low Dose Lung CT 09/28/24= Multiple solid small pulmonary nodules measuring up to 5 mm. These are likely benign and can be assessed on routine annual screening CT. No suspicious pulmonary nodules. A left subclavian pacer is in place. Size of the heart is normal. There is no pericardial effusion. The central airways are patent. There is no pneumothorax or pleural effusion. No foci of consolidation are present. Mild symmetric subpleural biapical densities favor scarring. There is mild emphysema.
--- NOTE | 2025-08-30 07:28 | History & Physical Report ---
Date of Service August 30, 2025 Assessment & Plan (1) Left knee DJD: We will proceed with a left total knee arthroplasty. Postoperatively, he will be started on aspirin for DVT prophylaxis and kept overnight in the hospital for postop medical management. He plans to use [facility] physical therapy after discharge. History of Present Illness Chief Complaint: Osteoarthritis of the left knee. Primary Care Provider: Orquidea Wong MD Gus is a pleasant 64-year-old male who has been dealing with chronically increasing left knee pain. He has been treated in our office by other providers. X-ray and clinical exam have been diagnostic for arthritis of the knee. He has had multiple injections. The injections are no longer helping. After failing conservative treatment, he has elected to proceed with a left total knee arthroplasty. Allergies Allergy/AdvReac Type Severity Reaction Status Date / Time No Known Allergies Allergy Unknown Verified 08/24/25 08:46 Home Medications Medication Instructions Recorded Confirmed Type loratadine 10 mg tablet (Claritin) 10 mg PO QAM allergies 12/01/23 08/24/25 History acetaminophen 325 mg tablet 650 mg (2 x 325 mg) PO Q4H PRN 12/02/23 08/24/25 Rx pain #30 tabs psyllium husk 3.4 gram/5.4 gram 1 tsp PO QPM 07/25/25 08/24/25 History oral powder (Metamucil) rosuvastatin 10 mg tablet 10 mg PO DAILY #90 tabs 08/24/25 08/24/25 Rx Past Med/Surg History Problem List Elevated PSA (Chronic) Severe obstructive sleep apnea (Chronic) CPAP therapy Osteoarthritis of knees, bilateral (Chronic) Nocturnal hypoxemia (Chronic) Presence of cardiac pacemaker (Chronic) Tobacco abuse (Chronic) Hyperlipidemia (Chronic) Internal hemorrhoids (Chronic) Diverticulosis (Chronic) Medical History History of colon polyps Sinus arrest 11/2023--per pt reason for pacemaker--per Dr. Pringle-"symptomatic nonreversible sinus node dysfunction"--no issues since pacemaker placed Surgical History Status post placement of cardiac pacemaker (11/2023) adina xt History of lumbosacral spine surgery (2022) x2 History of colonoscopy History of tonsillectomy Family History Unknown Hypertension Other Family history of diabetes mellitus in father No family history of adverse response to anesthesia Denies family history of Ovarian cancer Prostate cancer Myocardial infarction Breast cancer Colorectal cancer Social History Smoking Status: Current every day smoker Tobacco Type: Cigarettes Age Started Using Tobacco: 36; packs per day: 1; Cigarettes Per Day: 20 cigs a day (advised on policy); Second Hand Exposure: No; Do You Dip or Chew Tobacco: No; Tobacco Cessation Education Requested by Patient: No Hx Alcohol Use: Yes Alcohol type: beer Alcohol Intake Frequency: 2-3 x/Week Hx Substance Use: Yes Preferred Language: Malay Communication Ability: Effective Heating And Ventilating Worker Required: No Beliefs That Will Affect Care: None marital status: Single Current Living Situation: Significant Other current occupational status: employed and retired Other Information That Helps Us Care for You: No Feels Safe at Home: Yes Safety Concerns: Feels Safe At This Time Childhood Exposure to Second-Hand Smoke: Yes Diet: regular caffeine: Yes Dental Care, Regularly: No Physical Activity Frequency: 1-2 Times per Week Physical Activity Frequency Comment: walking elliptical Seatbelt Use: always Sunscreen Use: No Assistive Devices: CPAP and Glasses Review of Systems All systems reviewed & are unremarkable except as noted in HPI & below. Physical Exam On physical exam of the left knee, there is a varus deformity. Tenderness to palpation of the distal medial femoral condyle and over the medial joint line.. Constitutional WD/WN, vitals as above Eyes PERRL, conjunctivae normal, anicteric sclerae ENMT external ear and nose normal, oropharynx normal Neck trachea midline, no thyromegaly Respiratory normal respiratory effort Cardiovascular RRR, no murmur, no edema Gastrointestinal (Abdomen) normal bowel sounds, soft, nontender, no hepatosplenomegaly Psychiatric A+Ox3, euthymic affect Results & Data Results & Data Laboratory Results . Diagnostic Findings . PG Care Time/CCT Total # of Minutes Spent Total Time Spent with Patient: Total time spent is greater than 50% in coordination of care (as documented) at patient's floor/unit and/or counseling patient: Coding Level of Care Code None Diagnoses Left knee DJD M17.12
[2025-08-31] MEDS: ACETAMINOPHEN 500 MG TAB PO SCH ×2 (05:40→13:59)
[2025-08-31] MEDS: LR 60ML/HR IV SCH (05:41)
[2025-08-31] MEDS: GABAPENTIN 600 MG DOSE PO SCH (05:41)
[2025-08-31] MEDS: dexAMETHasone**PF** 10 MG/ML VIAL IV SCH (05:41)
[2025-08-31] MEDS: LR 500ML BOLUS, THEN 15ML/HR IV SCH (06:05)
[2025-08-31] MEDS ORDERED: ROPIVACAINE 0.5% 5 MG/ML 30 ML VIAL ONE (06:09)
[2025-08-31] MEDS ORDERED: HYDROmorphone INJ 1 MG/ML SYRINGE IV PRN (06:43)
[2025-08-31] MEDS ORDERED: ATROPINE SULFATE 0.1 MG/ML 10ML SYR IV PRN (06:43)
[2025-08-31] MEDS ORDERED: ONDANSETRON INJ 2 MG/ML 2 ML VIAL IV PRN ×2 (06:43→10:35)
[2025-08-31] MEDS ORDERED: MIDAZOLAM HCL 1 MG/ML 2ML VIAL ONE (06:45)
--- NOTE | 2025-08-31 06:47 | History & Physical Bridge Note ---
Date of Service August 31, 2025 History & Physical Bridge Note I have examined the patient, reviewed the History & Physical and in the interval since the performance of the History & Physical I have noted the following changes of clinical significance: no changes noted
[2025-08-31] MEDS: TRANEXAMIC ACID 1,000 MG **IV Pre-op IV SCH (06:49)
[2025-08-31] MEDS ORDERED: PROPOFOL IV EMULSION 10 MG/ML 100 ML VIAL IV ONE (06:50)
[2025-08-31] MEDS: ORTHO JOINT ANESTHETIC ONE (07:40)
[2025-08-31] MEDS: ROPIV 0.5% 246mg, Ketorolac 30mg, EPINEPHrine 0.5mg in NSS INFIL SCH (08:04)
[2025-08-31] MEDS ORDERED: PROPOFOL IV EMULSION 10 MG/ML 20 ML VIAL IV ONE (08:08)
--- NOTE | 2025-08-31 08:17 | Operative Report ---
PG Post Operative Report Pre & Post Diagnosis Operation Date: 08/31/25 07:00 Pre-Op Diagnosis: Left Knee Degenerative joint disease Post-Op Diagnosis: Left Knee Degenerative joint disease I identified the patient and participated in the time-out.: Yes Procedure Operation Date: 08/31/25 07:00 Actual Procedures p Robotic Assisted Left Total Knee Arthroplasty(Left) - Cameron Andrade DO Surgeon Cameron Andrade DO Head Banquet Waiter/Waitress Didier Jennings PA-C Estimated Blood Loss 30 Findings Consistent with Post-Op Diagnosis Specimens Left femoral and tibial bone Description of Procedure Implants used: I used a [employer] total knee arthroplasty system with a size 11 standard PS femur, G tibia, 32 patella, and a size 10 CPS polyethylene bearing. All components were press-fit into place. Jordan arrived [facility] for the above procedure. He was seen in the preoperative holding area and the operative extremity was identified and signed. he was given a preoperative antibiotic, TXA, a spinal anesthetic and an adductor nerve block. He was taken back to the operating room and laid on the table in supine position. He was given basic sedation. The operative knee was then prepped and draped in sterile fashion. A timeout was done, and the patient and the operative extremity was properly identified. A midline incision was made directly over the patella. Dissection was taken down to the extensor mechanism. A medial parapatellar arthrotomy was used. The medial retinaculum was released and the fat pad was mostly excised. The knee was flexed and the ACL, PCL, and meniscus were removed. The alignment of the knee replacement was assisted with a [employer] robotic knee. The femoral array was pinned in the distal femur and the tibial array was pinned using a percutaneous technique in the upper shaft of the tibia. The robot was appropriately calibrated and the structure of the knee was mapped out. The components were then manipulated on the screen to account for any malalignment and to assist in gap balancing. Once I was happy with the placement of the components on the screen, a distal femoral cutting guide was brought in place. The distal femur was then resected. The femur measured to be a size 11. A 4-in-1 cutting block was then put into place by the robot and 2 peg holes were drilled. The 4-in-1 cutting block was then impacted into place and anterior, posterior, and chamfer cuts were made. The cutting block was then brought down to the tibia and pinned into place. The proximal tibia was then resected. The posterior aspect of the knee was then opened up and any additional meniscus fragments and osteophytes were removed. The tibia measured to be a size G. The tibial plate was then placed in the appropriate rotation and the tibia was drilled and punched. Trial components were then placed. The patella was then everted and 9 mm was resected off the posterior aspect of the patella. The patella measured to be a size 32. 3 peg holes were then drilled. A trial patella was placed. A size 10 CPS polyethylene insert was then trialed. The knee was brought through a full range of motion and felt to be stable. Trial components were then removed. The surrounding soft tissues were injected with 100 cc of an orthopedic pain control cocktail. All components were then press-fit into place. The final polyethylene insert was then snapped into place. The tourniquet was deflated. Hemostasis was obtained. A dilute betadyne lavage was then done for 3 minutes. The joint was then irrigated with normal saline solution. The medial parapatellar arthrotomy was then closed with #1 Vicryl suture. The skin was closed with 2-0 Vicryl, 3-0V lock suture, and Lexie Zipline. A soft compressive dressing was placed. He was then transferred to a hospital bed and taken to the postanesthesia care unit in stable condition. He tolerated the procedure well. Didier Jennings PA-C, was present for the entire procedure. He was critical for patient positioning, prepping, draping, retraction exposure, wound closure and application of sterile dressing. I attest to the content of the Intraoperative Record and any orders documented therein. Any exceptions are noted below.
--- NOTE | 2025-08-31 09:22 | XRay Report ---
XR knee LT 1 or 2V routine CLINICAL HISTORY: Surgical Post Op COMPARISON: None FINDINGS: Left knee prosthesis shows no hardware complication. There is expected soft tissue gas. IMPRESSION: Unremarkable postoperative exam. ACT 112: Negative or not required by law. Electronically signed by: Juliocesar Lazaro M.D. 08/31/2025 9:20 AM
--- NOTE | 2025-08-31 09:24 | Anesthesiology Progress Note ---
Date of Service August 31, 2025 Anesthesia Post Procedure Vital Signs Vital Signs: Temp Pulse Pulse Resp BP Pulse Ox O2 Del Method 08/31/25 09:15 60 16 111/71 97 Room Air 08/31/25 09:05 61 14 108/68 97 Room Air 08/31/25 08:55 60 16 123/68 97 Oxymask 08/31/25 08:45 36.3 C L 68 16 115/73 97 Oxymask 08/31/25 05:35 36.5 C 70 20 124/76 93 Room Air O2 Flow Rate 08/31/25 09:15 08/31/25 09:05 08/31/25 08:55 4 08/31/25 08:45 6 08/31/25 05:35 Transfer of Care Handoff Completed per policy Notes Mental Status: alert / awake / arousable and participated in evaluation Patient Amnestic to Procedure: Yes Nausea / Vomiting: adequately controlled Pain: adequately controlled Airway Patency, RR, SpO2: stable & adequate BP & HR: stable & adequate Hydration State: stable & adequate Anesthetic Complications: no major complications apparent and Pt Satisfied with anesthetic care
[2025-08-31] MEDS ORDERED: NALOXONE HCL 0.4 MG/1 ML VIAL/CARP IV PRN (10:35)
[2025-08-31] MEDS ORDERED: METOCLOPRAMIDE HCL INJ 5 MG/ML 2 ML VIAL IV PRN (10:35)
[2025-08-31] MEDS ORDERED: HYDROmorphone INJ 0.5 MG/0.5 ML SYR IV PRN (10:35)
[2025-08-31] MEDS ORDERED: MAGNESIUM HYDROXIDE SUSP 30 ML UDC PO PRN (10:35)
[2025-08-31] MEDS: SODIUM CHLORIDE 0.9% 1,000 ML IV SCH (10:49)
[2025-08-31] MEDS: DOCUSATE SODIUM 100 MG CAP PO SCH (10:54)
[2025-08-31] MEDS: KETOROLAC TROMETHAMINE 15 MG/ML VIAL IV SCH (10:54)
[2025-08-31] MEDS: ROSUVASTATIN CALCIUM 10 MG TAB PO SCH (11:27)
[2025-08-31] MEDS: MULTIVITAMIN TAB PO SCH (11:27)
[2025-08-31] MEDS: ASPIRIN 81 MG ECTAB PO SCH (20:00)
[2025-08-31] MEDS: SENNA 8.6 MG TAB PO SCH (20:03)
[2025-09-01 07:29] VITALS: BP 129/76; PULSE 65; RESP 18; TEMP 97.9; O2SAT 99
--- NOTE | 2025-09-01 09:03 | Orthopedic Progress Note ---
Date of Service September 01, 2025 Assessment & Plan (1) Status post left knee replacement: Overall he is doing fairly well. He is not having much pain in the left knee. He has been up and ambulating to the bathroom. He will be seen by physical therapy today for ambulation and range of motion exercises. The nursing staff can change his dressing after physical therapy. He is on aspirin for DVT prophylaxis. He can be discharged to home later today. He will follow-up with orthopedics in 2 weeks. Julien Mcgee was seen and examined at bedside this morning. Overall is doing well. He is not having much pain in the left knee. He has been up and ambulating with physical therapy. He has no complaints.. Review of Systems All systems reviewed & are unremarkable except as noted in HPI & below. Physical Exam On physical exam of the left knee, the dressing is clean and dry. His leg is out in full extension. He has active dorsiflexion and plantarflexion of his left ankle.. Results & Data Results & Data Laboratory Results . Diagnostic Findings Postoperative x-rays of the left knee show the prosthesis to be in anatomic alignment without any evidence of fracture, dislocation, or loosening.. PG Care Time/CCT Total # of Minutes Spent Total Time Spent with Patient: Total time spent is greater than 50% in coordination of care (as documented) at patient's floor/unit and/or counseling patient: Coding Level of Care Code 30730 Post Operative Follow-Up Diagnoses Status post left knee replacement Z96.652
== END 2025-09-01 10:44 | disposition home health service (06) ==
LOC: 3E 05:27 → ASU 05:27